=== PATIENT | female | born 1940 | race Caucasian/White ===

== ENCOUNTER 2016-07-23 06:05 | Inpatient (IN) | payer OTHER ==
[~2016-07-23] VITALS: Ht 154.9 cm; Wt 61.2 kg
[~2016-07-23 06:05] MED LIST: ALBUTEROL2.5 MG/3 M INH/SOL; ALPRAZOLAM0.25 M1 PO; ALPRAZOLAM0.5 M4 PO; ALPRAZOLAM0.5 MG PO; ASPIRIN CHILDRE81 MG PO; CHILDREN'S ASPI81 M1 PO; CHLORASEPTIC20 ML EXT; CRESTOR20 M2 PO; CRESTOR20 MG PO; CYANOCOBAL1000 MCG/2 IM; DEXAMETHASONE SO5 ML OTIC; DIOVAN 160 MG160 MG PO; DIOVAN HCT 12.51 TAB PO; DIOVAN HCT 1601 EACH PO; DUONEB 3 MG/3 ML3 ML INH/SOL; ESTRACE0.5 M1 PO; ESTRADIOL0.5 MG PO; HUMULIN R100 U/ML SC; IPRAT-ALBUT 0.5-3 ML INH; ISOSORBIDE MONO60 M1 PO; ISOSORBIDE MONO60 MG PO; METOPROLOL SUCC25 M1 PO; METOPROLOL SUCC25 MG PO; MONTELUKAST SOD10 MG PO; NICODERM C14 MG/24 H TOP; NYSTATIN100000 UNI PO; OFLOXACIN5 ML OTIC; OMEPRAZOLE20 M2 PO; PREDNISONE 20MG20 MG PO; PREDNISONE10 M2 PO; PROAIR HFA0.09 MG/Ac INH; PROAIR HFA8.5 GM INH; Robitussin AC PO; SINGULAIR10 M1 PO; SPIRIVA 18 MCG18 MCG INH; SPIRIVA18 MCG INH; SYMBICORT 160/41 PUF INH; SYMBICORT 16010.2 GM INH; VALSARTAN AND H1 TA1 PO; VALSARTAN AND H1 TA2 PO; VITAB121000 PO; VITAMIN B11000 MCG/M IM; ZITHROMAX 500M500 MG PO; ZITHROMAX500 MG PO
--- NOTE | 2016-07-23 06:11 | NUR ---
PT BIBA FROM HOME FOR DIFF BREATHING FOR 3 DAYS. HAS COUGH BUT FEELS CAN'T BRING UP ANY PHLEGM. HAS PRN NASAL CAN O2AT HOME, 2-3 L/MIN, HAS USED A FEW TIMES OVER THE LAST COUPLE OF DAYS. PMH OF ANXIETY. ON EMS ARRIVAL, PT WOULD NOT TOLERATE PULSE OX, AND WOULD NOT TOLERATE NEBULIZER TREATMENT AT FIRST. PT HAS PRE HOSP 18 G LAC. O2 SAT 99% DURING DUO NEB. PT TRI PODDING, INCREASED WOB. DR YOON IN TO EVAL PT ON PT ARRIVAL TO ROOM. SKIN WARM AND DRY. O2 SAT 90-91% ON RA. PLACED ON 2L NC, O2 SAT 93-94%. REMAINS TACYPNIC AT 28 BREATHS/MIN. PT C/O "ACHES ALL OVER". WHEEZES ON AUSCULTATION
--- NOTE | 2016-07-23 06:16 | ED DYSPNEA/ASTHMA COMPLAINT ---
History of Present Illness General Chief Complaint: Dyspnea (COPD, CHF, Other) Stated Complaint: BIBA SOB, HX COPD Source: patient, family, old records, EMS Exam Limitations: no limitations Vital Signs & Intake/Output Vital Signs & Intake/Output Vital Signs Date Time Temp Pulse Resp B/P Pulse O2 O2 Flow FiO2 Ox Delivery Rate 07/23 0537 95 Nasal 3.0L Cannula 07/23 0632 94 Nasal 3.0L Cannula 07/23 606 99.3 98 26 195/88 95 Aerosol Mask Allergies Coded Allergies: Penicillins (Severe, DIFF BREATHING, SWELLING 07/23/16) bupropion (From WELLBUTRIN) (Intermediate, WELTS 09/16/15) morphine (Intermediate, ANXIOUS AND SOB 09/16/15) Reconcile Medications Albuterol Sulfate (Proair Hfa) 8.5 GM HFA.AER.AD 2 PUF INH PRN COPD (Reported ) Albuterol Sulfate 2.5 MG/3 ML VIAL.NEB 1 Vial INH/MARAL PRN COPD (Reported) Alprazolam 0.5 MG TABLET 1 TAB PO DAILY NEEDED PRN ANXIETY (Reported) Aspirin (Children's Aspirin) 81 MG TAB.CHEW 1 TAB PO DAILY HEART/BLOOD ( Reported) Budesonide/Formoterol Fumarate (Symbicort 160-4.5 Mcg Inhaler) 10.2 GM HFA.AER.AD 2 PUF INH BID COPD (Reported) Cyanocobalamin (Vitamin B-12) (Cyanocobalamin Injection) 1,000 MCG/1 ML VIAL 1 ML IM Q30D SUPPLEMENT (Reported) Estradiol (Estrace) 0.5 MG TABLET 1 TAB PO DAILY HRT (Reported) Ipratropium/Albuterol Sulfate (Iprat-Albut 0.5-3(2.5) MG/3 Ml) 3 ML AMPUL.NEB 3 ML INH PRN COPD (Reported) Isosorbide Mononitrate (Isosorbide Mononitrate ER) 60 MG TAB.ER.24H 1 TAB PO DAILY BP (Reported) Metoprolol Succinate 25 MG TAB.ER.24H 1 TAB PO DAILY BP (Reported) Montelukast Sodium (Singulair) 10 MG TABLET 1 TAB PO DAILY COPD (Reported) Omeprazole 20 MG CAPSULE.DR 40 MG PO DAILY [employer] [facility] Rosuvastatin Calcium (Crestor) 20 MG TABLET 1 TAB PO DAILY CHOLESTEROL ( Reported) Tiotropium [place] (Spiriva) 18 MCG CAP.W.DEV 1 CAP INH DAILY COPD (Reported) Valsartan/Hydrochlorothiazide (Diovan Hct 160-12.5 MG Tab) 1 EACH TABLET 1 TAB PO DAILY BP (Reported) Triage Nurses Notes Reviewed? yes HPI: Patient presents with an increasing cough, shortness of breath, wheezing and fevers since Thursday. Similar symptoms in the past. She has COPD and has an oxygen bottle at home however she just uses as needed. Over the past 2 days she has been requiring her oxygen more. Patient denies any chest pain or chest tightness. Positive fevers and chills. Positive anorexia. No nausea or vomiting. No dysuria. (CAR JO,SUE Antonio) Past History Travel History Traveled to [place] past 21 day No Medical History Any Pertinent Medical History? 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 10 years ago she had a cardiac catheterization but no intervention as she was told she had developed collateral circulation History of MRSA: No History of VRE: No History of CDIFF: No Surgical History Surgical History: cholecystectomy, hysterectomy, back surgery, neck surgery, knee surgery . cARDIAC ANGIOPLASTY WITHOUT STENTS Psychosocial History Who do you live with Family Services at Home Oxygen What is your primary language Occitan Tobacco Use: Quit >30 days ago ETOH Use: denies use Illicit Drug Use: denies illicit drug use Family History Family History, If Any: Relation not specified for: *No pertinent family history Hx Contributory? No (CAR JO,SUE Antonio) Review of Systems Review of Systems Constitutional: Reports: see HPI, chills, fever. EENTM: Reports: no symptoms. Respiratory: Reports: see HPI, cough, short of breath, wheezing. Cardiovascular: Reports: no symptoms. GI: Reports: no symptoms. Genitourinary: Reports: no symptoms. Musculoskeletal: Reports: no symptoms. Skin: Reports: no symptoms. Neurological/Psychological: Reports: no symptoms. Hematologic/Endocrine: Reports: no symptoms. Immunologic/Allergic: Reports: no symptoms. All Other Systems: Reviewed and Negative (CAR JO,SUE Antonio) Physical Exam Physical Exam General Appearance: well developed/nourished, alert, awake, severe distress Head: atraumatic Eyes: Bilateral: PERRL, EOMI. Ears, Nose, Throat: normal pharynx, normal ENT inspection, hearing grossly normal Neck: normal inspection, supple, full range of motion, JVD (6MC) Respiratory: wheezing, respiratory distress, PROLONGED EXPIRATION Cardiovascular: regular rate/rhythm, normal peripheral pulses Gastrointestinal: normal bowel sounds, soft, non-tender, no organomegaly Extremities: normal inspection, normal capillary refill, normal range of motion, no edema Neurologic/Psych: no motor/sensory deficits, awake, alert, oriented x 3, normal mood/affect Skin: intact, normal color, warm/dry Lymphatic: no anterior cervical hope Core Measures ACS in differential dx? No Severe Sepsis Present: No Septic Shock Present: No (CAR JO,SUE Antonio) Progress Differential Diagnosis: asthma, AMI, bronchitis, COPD, pericarditis, pneumonia, pneumothorax Plan of Care: Orders Procedure Date/time Status Heart Healthy Diet 07/23 L Active Patient Data 07/23 820 Active OXYGEN SETUP (GEN) 07/23 809 Active Saline Lock 07/23 809 Active Admit to inpatient 07/23 809 Active Vital Signs 07/23 809 Active Activity/Ambulation 07/23 809 Active Code Status 07/23 809 Active ARTERIAL BLOOD GAS (GEN) 07/23 615 Complete Telemetry/Hearing Screen Coordinator 07/23 614 Active BLOOD CULTURE 07/23 614 Active TROPONIN LEVEL 07/23 614 Complete COMPREHENSIVE METABOLIC PANEL 07/23 614 Complete CBC WITHOUT DIFFERENTIAL 07/23 614 Complete EKG 07/23 614 Active Intake & Output 07/23 06 Active Laboratory Tests 07/23/16 0715: CBC w Diff NO MAN DIFF REQ, RBC 5.53 H, MCV 81.4, MCH 26.8 L, RDW 14.3, Gran % 65.9, Lymphocytes % 19.4 L, Monocytes % 14.1 H, Eosinophils % 0.3, Basophils % 0.3, Absolute Granulocytes 4.1, Absolute Lymphocytes 1.2, Absolute Monocytes 0.9 H, Absolute Eosinophils 0, Absolute Basophils 0, PUBS MCHC 32.9 L 07/23/16630: Anion Gap 11, Estimated GFR > 60, BUN/Creatinine Ratio 20.0, Glucose 105 H, Calcium 9.1, Total Bilirubin 0.7, AST 18, ALT 32, Alkaline Phosphatase 70, Troponin I < 0.01, Total Protein 6.8, Albumin 4.2, Globulin 2.6, Albumin/ Globulin Ratio 1.6 07/23/16629: pH 7.38, pCO2 46 H, pO2 84, HCO3 26, ABG O2 Sat (Measured) 93.0 L, P-50 (Temp Corrected) Y, Carboxyhemoglobin 3.0, O2 Concentration % 3 LPM, Temperature 99.3, O2 Delivery Method N/C, Phlebotomy Draw Site RIGHT RADIAL Microbiology 07/23 630 BLOOD: Blood Culture - RECD 07/23 624 BLOOD: Blood Culture - RECD Diagnostic Imaging: Viewed by Me: Radiology Read. Discussed w/RAD: Radiology Read. Initial ED EKG: NSR, nonspecific ST T wave chg Prior EKG: unchanged Rhythm Strip: normal sinus rhythm (SUE YOON MD) Comments: Improved work of breathing but still short of breath with speech feeling weak and unsteady. (CESAR HAHN MD) Departure Departure Disposition: STILL A PATIENT Condition: Guarded Referrals: MARCOS JO,VIC (PCP/Family) Departure Forms: Customer Survey General Discharge Information (SUE YOON MD) Departure Time of Disposition: 826 Clinical Impression Primary Impression: Pneumonia Qualifiers: Pneumonia type: due to unspecified organism Lung location: lower lobe of lung Secondary Impressions: COPD exacerbation Admission Note Spoke With: BRENT LOOMIS MD Documentation of Exam: Documentation of any treatments & extenuating circumstances including Concerns Regarding Discharge (functional status, medication knowledge or non-compliance, living conditions, etc.) that warrant an admission rather than observation: Supplemental oxygen serial beta agonist nebs and IV steroids IV antibiotics physical therapy medication adjustment continuing care discharge planning. (CESAR HAHN MD) Critical Care Note Critical Care Note Critical Care Time: non-applicable (SUE YOON MD) BRENT LOOMIS MD Documentation of Exam: Documentation of any treatments & extenuating circumstances including Concerns Regarding Discharge (functional status, medication knowledge or non-compliance, living conditions, etc.) that warrant an admission rather than observation: Supplemental oxygen serial beta agonist nebs and IV steroids IV antibiotics physical therapy medication adjustment continuing care discharge planning. (SELMA JO,CESAR) Critical Care Note Critical Care Note Critical Care Time: non-applicable (CAR JO,SUE Antonio)
--- NOTE | 2016-07-23 06:25 | NUR ---
RT AT BEDSIDE FOR ABG. BLOOD CULTURES X2 DRAWN. BLOODS DRAWN.
--- NOTE | 2016-07-23 06:30 | NUR ---
HOSP IV EST #20 RIGHT AC. FIRST SET OF BLOOD CULTURES OBTAINED AND SENT TO LAB ([id number]).
--- NOTE | 2016-07-23 06:36 | NUR ---
RESPIRATORY AT BEDSIDE FOR TREATMENT
--- NOTE | 2016-07-23 06:37 | NUR ---
PT GIVEN 125MG SOLUMEDROL BY GISSELLE KANIKA
--- NOTE | 2016-07-23 06:38 | NUR ---
BLOODWORK AND 2ND SET OF BLOOD CULTURES DRAWN AND SENT OFF TO THE LAB.
--- NOTE | 2016-07-23 06:48 | NUR ---
XRAY AT BEDSIDE FOR IMAGING
--- NOTE | 2016-07-23 06:50 | NUR ---
EKG DONE AND SHOWN TO DR. YOON.
--- NOTE | 2016-07-23 07:01 | NUR ---
ASSUMED CARE OF PT WHO IS A&OX3. PT CHANGED INTO HOSPITAL GOWN AND MODERATE RESPIRATORY DISTRESS NOTED WHILE ASSISTING PT. O2 SATS DOWN TO 88% DURING MINIMAL EXERTION. DAUGHTER OF PT AT BEDSIDE. WILL CTM
--- NOTE | 2016-07-23 07:05 | NUR ---
LAB CALLED TO REDRAW CBC
--- NOTE | 2016-07-23 07:07 | RADIOLOGY REPORT ---
EXAMINATION: XR PORTABLE CHEST CLINICAL INFORMATION: Pneumonia. Shortness of breath and cough. COMPARISON: 10/03/2015 TECHNIQUE: Portable AP view of the chest was obtained. FINDINGS: Cardiac leads overlie the chest. The lungs are well expanded. Patchy retrocardiac opacity noted. There is no edema or effusion. No pneumothorax. The cardiomediastinal silhouette is within normal limits. No acute osseous abnormality. IMPRESSION: Patchy retrocardiac opacity could represent atelectasis or pneumonia.
--- NOTE | 2016-07-23 07:15 | NUR ---
CBC REDRAWN AND SENT OFF TO THE LAB.
[2016-07-23 07:22] LABS: ABSOLUTE BASOPHIL COUNT 0 /CUMM (0.0-0.2); ABSOLUTE EOSINOPHIL COUNT 0 /CUMM (0.0-0.7); ABSOLUTE GRANULOCYTE CT 4.1 /CUMM (1.4-6.5); ABSOLUTE LYMPH COUNT 1.2 /CUMM (1.2-3.4); ABSOLUTE MONOCYTE COUNT 0.9 /CUMM (0.10-0.60); BASOPHIL % 0.3 % (0.0-2.0); EOSINOPHIL % 0.3 % (0-5); MEAN CORPUSCULAR HGB 26.8 PG (27.0-31.0); MEAN CORPUSCULAR HGB CONC 32.9 G/DL (33.0-37.0); MEAN CORPUSCULAR VOLUME 81.4 FL (81.0-99.0); RBC DISTRIBUTION WIDTH 14.3 % (11.5-14.5); RED BLOOD CELL CT 5.53 /CUMM (4.20-5.40); WHITE BLOOD CELL COUNT 6.2 /CUMM (4.8-10.8)
[2016-07-23 07:43] LABS: GRANULOCYTE % 65.9 % (42.2-75.2)
--- NOTE | 2016-07-23 08:33 | NUR ---
PT MEDICATED DOCUMENTED IN EMAR. BREAKFAST TRAY ORDERED, WAITING FOR ARRIVAL
--- NOTE | 2016-07-23 08:51 | History & Physical ---
GILL ROMERO 07/23/16 0851: General Information and HPI Source of Information: patient, family, old records Exam Limitations: no limitations History of Present Illness: She 76-year-old woman with past medical history of COPD on 2-3 L of home oxygen as needed, hypertension, hyperlipidemia, coronary artery disease with history of [place] and angioplasty without stents, anxiety, vitamin B12 deficiency, spinal stenosis and varicose veins BIBA from home for worsening shortness of breath, chills, dry cough and chest congestion for last 3 days. This morning patient woke up and could not breathe. She lives with her daughter. She used oxygen all day and had nebulization treatments 3 times yesterday but could not help. She reports feeling dizzy but denies any chest pain or discomfort, palpitations, nausea, vomiting, abdominal pain, any change in urinary or bowel habits, leg swelling. He reports sick contacts at home. She is a former smoker. Used to smoke 1 pack per day. Quit one year ago. She is independent for her daily activities. Allergies/Medications Allergies: Coded Allergies: Penicillins (Severe, DIFF BREATHING, SWELLING 07/23/16) bupropion (From WELLBUTRIN) (Intermediate, WELTS 09/16/15) morphine (Intermediate, ANXIOUS AND SOB 09/16/15) Home Med list Albuterol Sulfate (Proair Hfa) 8.5 GM HFA.AER.AD 2 PUF INH PRN COPD (Reported ) Albuterol Sulfate 2.5 MG/3 ML VIAL.NEB 1 Vial INH/MARAL PRN COPD (Reported) Alprazolam 0.5 MG TABLET 1 TAB PO DAILY NEEDED PRN ANXIETY (Reported) Aspirin (Children's Aspirin) 81 MG TAB.CHEW 1 TAB PO DAILY HEART/BLOOD ( Reported) Budesonide/Formoterol Fumarate (Symbicort 160-4.5 Mcg Inhaler) 10.2 GM HFA.AER.AD 2 PUF INH BID COPD (Reported) Cyanocobalamin (Vitamin B-12) (Cyanocobalamin Injection) 1,000 MCG/1 ML VIAL 1 ML IM Q30D SUPPLEMENT (Reported) Estradiol (Estrace) 0.5 MG TABLET 1 TAB PO DAILY HRT (Reported) Ipratropium/Albuterol Sulfate (Iprat-Albut 0.5-3(2.5) MG/3 Ml) 3 ML AMPUL.NEB 3 ML INH PRN COPD (Reported) Isosorbide Mononitrate (Isosorbide Mononitrate ER) 60 MG TAB.ER.24H 1 TAB PO DAILY BP (Reported) Metoprolol Succinate 25 MG TAB.ER.24H 1 TAB PO DAILY BP (Reported) Montelukast Sodium (Singulair) 10 MG TABLET 1 TAB PO DAILY COPD (Reported) Rosuvastatin Calcium (Crestor) 20 MG TABLET 1 TAB PO DAILY CHOLESTEROL ( Reported) Tiotropium [place] (Spiriva) 18 MCG CAP.W.DEV 1 CAP INH DAILY COPD (Reported) Valsartan/Hydrochlorothiazide (Diovan Hct 160-12.5 MG Tab) 1 EACH TABLET 1 TAB PO DAILY BP (Reported) Compliance With Home Meds: GOOD Past History Travel History Traveled to [place] past 21 day No Medical History Neurological: NONE EENT: cataracts Cardiovascular: CAD, hypertension, hyperlipidemia, myocardial infarction ( 25 YRS AGO AND 10 YRS AGO) Respiratory: COPD Gastrointestinal: GERD Hepatic: cholelithiasis Renal: NONE Musculoskeletal: spinal stenosis Psychiatric: anxiety Endocrine: NONE Blood Disorders: VITAMIN B12 DEFICIENCY Cancer(s): NONE 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 10 years ago she had a cardiac catheterization but no intervention as she was told she had developed collateral circulation History of MRSA: No History of VRE: No History of CDIFF: No Surgical History Surgical History: cholecystectomy, hysterectomy, back surgery, neck surgery, knee surgery . cARDIAC ANGIOPLASTY WITHOUT STENTS Past Family/Social History Family History Relations & Conditions if any Relation not specified for: *No pertinent family history Psychosocial History Who Do You Live With? child Services at Home: Oxygen Primary Language: Tajik ETOH Use: denies use Illicit Drug Use: denies illicit drug use Functional Ability ADLs Independent: dressing, eating, toileting, bathing. Ambulation: independent IADLs Independent: shopping, housework, finances, food prep, telephone, transportation , medication admin. Review of Systems Review of Systems Constitutional: Reports: see HPI. Exam & Diagnostic Data Last 24 Hrs of Vital Signs/I&O Vital Signs Date Time Temp Pulse Resp B/P Pulse O2 O2 Flow FiO2 Ox Delivery Rate 07/23 928 98.4 82 20 115/55 95 Nasal 2.0L Cannula 07/23 636 95 Nasal 3.0L Cannula 02/08 0632 94 Nasal 3.0L Cannula 07/23 606 99.3 98 26 195/88 95 Aerosol Mask Intake & Output 07/23 1600 07/23 0800 07/23 0000 Intake Total Output Total Balance Patient 137 lb Weight Physical Exam General Appearance Alert, Oriented X3, Cooperative, Mild Distress Skin No Rashes HEENT DRY MUCOUS MEMBRANES Neck Supple Cardiovascular Regular Rate Lungs DECREASED AIR ENTRY B/L Abdomen Normal Bowel Sounds, Soft, No Tenderness Neurological Normal Speech, Strength at 5/5 X4 Ext, Sensation Intact, Cranial Nerves 3-12 NL Extremities No Edema, VENOUS STASIS CHANGES Last 24 Hrs of Labs/Tano: Laboratory Tests 07/23/16714: CBC w Diff NO MAN DIFF REQ, RBC 5.53 H, MCV 81.4, MCH 26.8 L, RDW 14.3, Gran % 65.9, Lymphocytes % 19.4 L, Monocytes % 14.1 H, Eosinophils % 0.3, Basophils % 0.3, Absolute Granulocytes 4.1, Absolute Lymphocytes 1.2, Absolute Monocytes 0.9 H, Absolute Eosinophils 0, Absolute Basophils 0, PUBS MCHC 32.9 L 07/23/16630: Anion Gap 11, Estimated GFR > 60, BUN/Creatinine Ratio 20.0, Glucose 105 H, Calcium 9.1, Total Bilirubin 0.7, AST 18, ALT 32, Alkaline Phosphatase 70, Troponin I < 0.01, Total Protein 6.8, Albumin 4.2, Globulin 2.6, Albumin/ Globulin Ratio 1.6 07/23/16 0630: pH 7.38, pCO2 46 H, pO2 84, HCO3 26, ABG O2 Sat (Measured) 93.0 L, P-50 (Temp Corrected) Y, Carboxyhemoglobin 3.0, O2 Concentration % 3 LPM, Temperature 99.3, O2 Delivery Method N/C, Phlebotomy Draw Site RIGHT RADIAL Microbiology 07/23 930 URINE ROUT: Legionella Antigen - ORD 07/23 930 URINE ROUT: Streptococcus pneumoniae Antigen (M - ORD 07/23 930 LOWER RESP: Respiratory Culture - ORD 07/23 930 LOWER RESP: Gram Stain - ORD 07/23 630 BLOOD: Blood Culture - RECD 07/23 624 BLOOD: Blood Culture - RECD Diagnostic Data EKG Results Normal sinus rhythm with heart rate 92, no acute ST-T wave changes, QTc 451 CXR Results Patchy retrocardiac opacity could represent atelectasis or pneumonia Assessment/Plan Assessment: She 76-year-old woman with past medical history of COPD on 2-3 L of home oxygen as needed, hypertension, hyperlipidemia, coronary artery disease with history of [place] and angioplasty without stents, anxiety, vitamin B12 deficiency, spinal stenosis and varicose veins BIBA from home for worsening shortness of breath, chills, dry cough and chest congestion for last 3 days. Patient was very short of breath, on aerosol mask when she was brought into ER by EMS. She was also tachypneic with respiratory rate 28 breaths per minute. Oxygen saturation was 90-91% on room air. She was put on 2 L of oxygen by nasal cannula and oxygen saturation went up to 93-94%. Oxygen saturation went down to 88% during minimal exertion. She was given nebz treatment in ER. She was wheezing on admission. Air entry is decreased bilaterally. She is afebrile. MAXIMUM TEMPERATURE 99. WBC count is normal. In ER she was given Solu-Medrol 125 mg IV 1, ceftriaxone 1 g 1 and doxycycline 100 mg 1. Problem list 1. Acute hypoxic respiratory failure secondary to COPD and pneumonia 2. History of hypertension 3. History of hyperlipidemia 4. History of anxiety 5. History of coronary artery disease Plan * Admitted on general medicine floor * Monitor vitals closely. We will continue supplemental oxygen. We will try to keep oxygen saturation more than 92% * Continue TRC nebs * Start patient on ceftriaxone and azithromycin. We will also start her on Solu -Medrol 40 mg every 8 hours. Mucinex * Follow blood cultures and sputum cultures, urinary antigen for Legionella and strep he will, rapid flu * We will continue all her home medications * Heart healthy diet * Subcutaneous Lovenox for DVT prophylaxis * Full code As Ranked By This Provider Problem List: 1. Pneumonia Qualifiers Pneumonia type: due to unspecified organism Lung location: lower lobe of lung 2. COPD (chronic obstructive pulmonary disease) Core Measures/Miscellaneous Acute Coronary Syndrome ACS Diagnosis: No Cerebrovascular Accident CVA/TIA Diagnosis: No Congestive Heart Failure CHF Diagnosis: No Venous Thromboembolism VTE Risk Factors: Acute medical illness, Age > 40 VTE Prophylaxis Ordered Inpt: Pharm- Lovenox No Mech VTE prophylaxis d/t: No contraindications No VTE Pharm Prophylaxis d/t: No contraindications VTE Diagnosis: No VTE Type: NONE VTE Confirmed by (Test): NONE Severe Sepsis Severe Sepsis Present: No Septic Shock Septic Shock Present: No Miscellaneous Documentation Attending Case Discussed With: RUDDY BOWERS MD Primary Care Physician: MARCOS JO,VIC Patient sees these Specialists Teja Bales MD Level of Patient Care: General Medicine RUDDY BOWERS MD 07/23/16 2110: Attending Review Statement Attending Statement Attending Statement: examined this patient, discuss w/resident/PA/BOAT BUFFER PLASTIC, agreed w/resident/PA/BOAT BUFFER PLASTIC, reviewed EMR data (avail), discussed with nursing, discussed with case mgmt, reviewed images, amended to note Attending Assessment/Plan: The patient is a 76 yo female with/o COPD, HTN, HL, CAD (S/P [place]/angioplasty- w/o stent), and anxiety who presented in the emergency room with 3 day h/o increased dyspnea, chills, non-productive cough. She used a nebulizer and oxygen at home without relief. In the ED was found to desaturate to 88% on RA with ambulation- acute hypoxic respiratory failure and CXR suggested LLL pneumonia. Physical Exam: VS: 99.3, P 98. R 20 BP 115/55, PO 95% 3L HEENT: eyes- PERRLA, EOMI oscar- no lesions Neck: no JVD or adenopathy, no bruits Chest: severely diminished breath sounds diffusely with mild expiratory wheeze Cor: RRR, nl S1, S2 w/o murm Abd: BS+, soft, NT Ext: no edema, + stasis changes, pulses 1+ Neuro: alert & oriented x 3, non-focal Labs/Tests- as above Impression/Plan: #Community Acquired Pneumonia- LLL infiltrate on CXR. Plan: Admit to medical floor. Panculture IV antibiotics- Ceftriaxone/Zithromax Mucinex #Acute COPD Exacerbation- with significantly diminished breath sounds. Plan: IV Solumedrol, albuterol nebs, etc. #Acute Hypoxic Respiratory Failure- secondary to COPD exacerbation/pneumonia. Plan: Oxygen support- nasal with close pulse oximetry monitoring. #Essential HTN- BP good. Plan: Continue Metoprolol, Valsartan, HCTZ #CAD- no chest pain or ischemic changes. Plan: Continue Isosorbide/Metoprolol/ASA. #Hyperlipidemia- on Rosuvastatin as OP. Plan: Substitute Atorvastatin while in hospital.
--- NOTE | 2016-07-23 09:15 | NUR ---
PT GIVEN BREAKFAST TRAY
--- NOTE | 2016-07-23 10:48 | NUR ---
PT MEDICATED WITH MORNING MEDS DOCUMENTED. PT PREVIOUSLY TAKEN MOST OF HER HOME MEDS BEFORE COMING TO ED TODAY
--- NOTE | 2016-07-23 12:35 | NUR ---
REPORT RECEIVED FROM DUNIA RN, PT CARE ASSUMED. PT RESTING COMFORTABLY ON STRETCHER AWAITING BED ASSIGNMENT. FAMILY AT BEDSIDE
--- NOTE | 2016-07-23 13:16 | NUR ---
BED ASSIGNMENT [id number]
--- NOTE | 2016-07-23 14:24 | NUR ---
AWAITING FLOOR RN TO CALL BACK.
--- NOTE | 2016-07-23 14:47 | NUR ---
REPORT CALLED. TRANSPORT CALLED.
--- NOTE | 2016-07-23 14:54 | NUR ---
DANNA HAMMER Nurse Note by: BIJAL COLLAZO I agree with the LABORER PIPELINES findings/evaluation of this patient's condition. Entered by: BIJAL COLLAZO Date: 07/23/16 Time: 0683
[2016-07-23 15:50] VITALS: BP 102/60
--- NOTE | 2016-07-23 16:00 | NUR ---
ARRIVED TO FLOOR FROM ED. A & O X 3. AMBULATORY. O2 2L IN PLACE, BASELINE AT HOME. VSS. DENIES PAIN. LUNGS DIMINISHED, PT REQUESTING TREATMENT, RESPIRATORY CALLED. ORIENTED TO CALL SYSTEM. WILL MONITOR.
--- NOTE | 2016-07-23 16:18 | Admission Certification ---
Admission Certification Certification Statement - As attending physician, I certify that at the time of - admission, based on clinical presentation, severity of - symptoms, need for further diagnostic testing and - therapeutic interventions, and risk of adverse outcomes - without in-hospital treatment, in my clinical assessment, - this patient requires an acute hospital stay for a minimum - of two nights or longer. I have also considered psychsocial - factors such as support system, advanced age, financial - issues, cognitive issues, and failed out-patient treatments, - past re-admission history, safety of patient, and lack of - compliance as applicable. Specific rationale supporting this admission is: Patient presents with acute hypoxic respiratory failure requiring oxygen, LLL community acquired pneumonia and COPD exacerbation. Needs close monitor of oxygen and nasal oxygen. IV antibiotics (Ceftriaxone/Zitrhomax) and IV medrol, nebulizer treatments.
[2016-07-23 22:13] VITALS: BP 120/60
[2016-07-24 05:54] VITALS: BP 90/54
--- NOTE | 2016-07-24 07:40 | PN- Housestaff ---
RACHEAL BEE 07/24/16 0739: Subjective Follow-up For: COPD exacerbation Pneumonia/atelectasis Subjective: Patient seen and examined. Was short of breath in the morning even after neb treatment. She was saturating 87% on 3.5 L oxygen so her oxygen was increased to 4 L. Lungs showed diminshed breath sounds. No leukocytosis appreciated on labs. Review of Systems Constitutional: Reports: see HPI. Objective Last 24 Hrs of Vital Signs/I&O Vital Signs Date Time Temp Pulse Resp B/P Pulse O2 O2 Flow FiO2 Ox Delivery Rate 07/24 924 80 110/80 07/24 924 80 110/80 07/24 924 80 110/80 07/24 807 92 Nasal 3.5L Cannula 07/24 0554 97.8 70 20 90/54 95 Nasal 3.0L Cannula 07/24 0000 92 Nasal 3.0L Cannula 07/23 2213 97.1 83 22 120/60 93 Nasal Cannula 07/23 1647 Nasal 3.0L Cannula 07/23 1600 92 Nasal 2.0L Cannula 07/23 1550 98.1 71 22 102/60 92 Nasal 3.0L Cannula 07/23 1514 97.9 72 20 115/56 94 Nasal 2.0L Cannula 07/23 1424 20 07/23 1339 97.9 74 2 125/58 95 Nasal 2.0L Cannula 07/23 1054 Nasal 3.0L Cannula 07/23 1047 98.0 88 20 138/88 07/23 1047 98.0 88 20 138/88 07/23 1046 98.0 88 20 138/88 Intake & Output 07/24 1600 07/24 0800 07/24 0000 Intake Total 200 120 Output Total Balance 200 120 Intake, Oral 200 120 Patient 61.235 kg Weight Physical Exam General Appearance: Alert, Oriented X3, Cooperative, Mild Distress Skin: No Rashes, No Breakdown HEENT: Atraumatic Lymphatic: Cervical nl Cardiovascular: Normal S1, Normal S2 Lungs: dec breath sounds b/l Abdomen: Soft, No Tenderness Current Medications: Current Medications Sig/Jennifer Start time Last Medication Dose Route Stop Time Status Admin Albuterol Sulfate 3 ML EVERY 4 HRS/AWAKE 07/23 1999 AC 07/24 INH 0803 Albuterol Sulfate 3 ML Q4 HRS NEEDED PRN 07/23 929 AC INH Alprazolam 0.5 MG DAILY PRN 07/23 0930 AC 07/23 PO 07/30 0929 2052 Aspirin 81 MG DAILY 07/23 1000 AC 07/24 PO 0925 Atorvastatin Calcium 20 MG 1700 07/23 1700 AC 07/23 PO 1708 Azithromycin 500 MG DAILY 07/23 1000 AC 07/24 Dextrose/Water 250 ML IV 0926 Budesonide/ 2 PUF BID 07/23 1000 AC 07/24 Formoterol Fumarate INH 0933 Ceftriaxone Sodium 1,000 MG DAILY 07/24 1000 AC 07/24 IV 0924 Enoxaparin Sodium 40 MG DAILY 07/23 1000 AC 07/24 SC 0925 Estradiol 0.5 MG DAILY 07/23 1000 AC 07/24 PO 0925 Guaifenesin 600 MG Q12 07/23 1000 AC 07/24 PO 0925 Hydrochlorothiazide 12.5 MG DAILY 07/23 1000 AC 07/24 PO 0924 Ipratropium [place] 2.5 ML EVERY 4 HRS/AWAKE 07/23 2000 AC 07/24 INH 0803 Isosorbide 60 MG DAILY 07/23 1000 AC 07/24 Mononitrate PO 0925 Losartan Potassium 50 MG DAILY 07/23 1000 AC 07/24 PO 0925 Methylprednisolone 40 MG Q8 07/23 1400 AC 07/24 IV 0523 Metoprolol Succinate 25 MG DAILY 07/23 1000 AC 07/24 PO 0925 Montelukast Sodium 10 MG QPM 07/23 2200 AC 07/23 PO 1709 Tiotropium [place] 1 PUF DAILY 07/23 1000 AC 07/24 INH 0959 Last 24 Hrs of Lab/Tano Results Last 24 Hrs of Labs/Mics: Laboratory Tests 07/24/16 0802: Anion Gap 9, Estimated GFR > 60, BUN/Creatinine Ratio 27.1 H, Glucose 151 H, Calcium 9.4, Total Bilirubin 0.5, AST 21, ALT 27, Alkaline Phosphatase 60, Total Protein 6.7, Albumin 4.1, Globulin 2.6, Albumin/Globulin Ratio 1.6, CBC w Diff NO MAN DIFF REQ, RBC 5.37, MCV 81.5, MCH 27.0, RDW 14.1, Gran % 82.3 H, Lymphocytes % 10.4 L, Monocytes % 7.0, Eosinophils % 0.1, Basophils % 0.2, Absolute Granulocytes 3.4, Absolute Lymphocytes 0.4 L, Absolute Monocytes 0.3, Absolute Eosinophils 0, Absolute Basophils 0, PUBS MCHC 33.2 Microbiology 07/23 1134 URINE ROUT: Legionella Antigen - COMP 07/23 1133 URINE ROUT: Streptococcus pneumoniae Antigen (M - COMP Assessment/Plan Assessment: Patient is a 76-year-old female with PMH of COPD on 2-3 L of home oxygen as needed, hypertension, hyperlipidemia, coronary artery disease with history of [place] and angioplasty without stents, anxiety, vitamin B12 deficiency, spinal stenosis and varicose veins BIBA from home for worsening shortness of breath, chills, dry cough and chest congestion for last 3 days. Patient was very short of breath, on aerosol mask when she was brought into ER by EMS. She was also tachypneic with respiratory rate 28 breaths per minute. Oxygen saturation was 90-91% on room air. She was put on 2 L of oxygen by nasal cannula and oxygen saturation went up to 93-94%. Oxygen saturation went down to 88% during minimal exertion. She was given nebz treatment in ER. TMAX on admission 99. WBC count is normal. In ER she was given Solu-Medrol 125 mg IV 1, ceftriaxone 1 g 1 and doxycycline 100 mg 1. Problem list Acute hypoxic respiratory failure secondary to COPD and pneumonia Patient was admitted to telemetry floor, satrted on 40 mg solumedrol after a stress does. She was started on ceftriaxone/azithro for possible pneumina CXR on admission showed patchy retrocardiac opacities Will keep oxygen saturations > 92% TRC nebs as needed. Respiratory therapist on board Will continue on mucine, and follow up BC and Lower resp culture History of hypertension She is continued on Metoprolol, HCTZ and losartan Patient was hypotensiove this morning Will hold her BP meds for pressures < 100 systolic Hyperlipidemia and anxiety Will continue her on home meds. Heart healthy diet Subcutaneous Lovenox for DVT prophylaxis Full code Problem List: 1. PNEUMONIA Pain Ratin Pain Location: none Pain Goal: Pain 4 or less Pain Plan: tylenol prn for pain Tomorrow's Labs & Rationales: none RUDDY BOWERS MD 07/24/16 1151: Attending Review Statement Attending Statement Attending MD Statement: examined this patient, discuss w/resident/PA/GRINDER SET UP OPERATOR [employer], agreed w/resident/PA/GRINDER SET UP OPERATOR [employer], discussed with family, reviewed EMR data (avail), discussed with nursing, amended to note Attending Assessment/Plan: The patient was seen and discussed with house staff. Agree with the plan of care as outlined. Still with significantly diminished breath sounds. Continue current treatment.
[2016-07-24 08:29] LABS: ABSOLUTE BASOPHIL COUNT 0 /CUMM (0.0-0.2); ABSOLUTE EOSINOPHIL COUNT 0 /CUMM (0.0-0.7); ABSOLUTE GRANULOCYTE CT 3.4 /CUMM (1.4-6.5); ABSOLUTE LYMPH COUNT 0.4 /CUMM (1.2-3.4); ABSOLUTE MONOCYTE COUNT 0.3 /CUMM (0.10-0.60); BASOPHIL % 0.2 % (0.0-2.0); EOSINOPHIL % 0.1 % (0-5); HEMATOCRIT 43.7 % (37-47); MEAN CORPUSCULAR HGB CONC 33.2 G/DL (33.0-37.0); MEAN CORPUSCULAR VOLUME 81.5 FL (81.0-99.0); RBC DISTRIBUTION WIDTH 14.1 % (11.5-14.5); RED BLOOD CELL CT 5.37 /CUMM (4.20-5.40); WHITE BLOOD CELL COUNT 4.2 /CUMM (4.8-10.8)
[2016-07-24 09:01] LABS: GRANULOCYTE % 82.3 % (42.2-75.2)
[2016-07-24 14:32] VITALS: BP 110/56
[2016-07-24 21:44] VITALS: BP 94/60
[2016-07-25 06:26] VITALS: BP 118/64
--- NOTE | 2016-07-25 07:41 | PN- Housestaff ---
Subjective Follow-up For: COPD exacerbation Subjective: Patient seen and examined. Feels the same. Patient continues to feel SOB, worsen upon exertion. Evaluated by meteorological technician in AM. CXR PA/lateral not significant for pneumonia. Antibiotics narrowed to azithromycin. Patient continues to be afebrile, and no leukocytosis. Review of Systems Constitutional: Reports: see HPI. Objective Last 24 Hrs of Vital Signs/I&O Vital Signs Date Time Temp Pulse Resp B/P Pulse O2 O2 Flow FiO2 Ox Delivery Rate 07/25 1004 98 Nasal 4.0L Cannula 07/25 0942 70 118/70 07/25 0942 70 118/70 07/25 0942 70 118/70 07/25 0800 95 Nasal 3.5L Cannula 07/25 0626 97.8 64 20 118/64 94 Nasal 3.5L Cannula 07/25 0000 Nasal 3.5L Cannula 07/24 2144 97.7 66 18 94/60 94 Nasal 3.5L Cannula 07/24 1905 91 Nasal 3.0L Cannula 07/24 1853 93 Nasal 3.0L Cannula 07/24 1600 98 Nasal 4.0L Cannula 07/24 1432 98.8 70 22 110/56 98 Intake & Output 07/25 1600 07/25 0800 07/25 0000 Intake Total 340 240 Output Total Balance 340 240 Intake, Oral 340 240 Physical Exam General Appearance: Alert, Oriented X3, Cooperative Skin: No Rashes, No Breakdown HEENT: Atraumatic Neck: Supple Cardiovascular: Normal S1, Normal S2 Lungs: dec breath sounds b/l Abdomen: Normal Bowel Sounds, Soft, No Tenderness Neurological: Normal Speech, Normal Tone Extremities: Normal Pulses Current Medications: Current Medications Sig/Jennifer Start time Last Medication Dose Route Stop Time Status Admin Albuterol Sulfate 3 ML Q4 HRS NEEDED PRN 07/23 929 AC 07/25 INH 1002 Alprazolam 0.25 MG ONCE ONE 07/24 2144 DC 07/24 PO 07/24 2145 220 Alprazolam 0.5 MG DAILY PRN 07/23 929 AC 07/25 PO 07/30 09 1111 Aspirin 81 MG DAILY 07/23 1000 AC 07/25 PO 0941 Atorvastatin Calcium 20 MG 1700 07/23 1700 AC 07/24 PO 1812 Azithromycin 500 MG DAILY 07/23 1000 AC 07/25 Dextrose/Water 250 ML IV 0939 Budesonide/ 2 PUF BID 07/23 1000 AC 07/25 Formoterol Fumarate INH 0700 Ceftriaxone Sodium 1,000 MG DAILY 07/24 1000 DC 07/25 IV 0939 Enoxaparin Sodium 40 MG DAILY 07/23 1000 AC 07/25 SC 0942 Estradiol 0.5 MG DAILY 07/23 1000 AC 07/25 PO 0941 Guaifenesin 600 MG Q12 07/23 1000 AC 07/25 PO 0942 Isosorbide 60 MG DAILY 07/23 1000 AC 07/25 Mononitrate PO 0942 Losartan Potassium 50 MG DAILY 07/23 1000 AC 07/25 PO 0942 Methylprednisolone 40 MG Q6 07/25 1200 AC 07/25 IV 1237 Methylprednisolone 40 MG Q8 07/23 1400 DC 07/25 IV 0508 Metoprolol Succinate 12.5 MG DAILY 07/25 1000 AC 07/25 PO 0942 Metoprolol Succinate 25 MG DAILY 07/23 1000 DC 07/24 PO 0925 Montelukast Sodium 10 MG QPM 07/23 2200 AC 07/24 PO 1812 Patient Medication 1 ED .ST-MED ONE 07/25 1331 SC Teaching ED 07/25 1332 Tiotropium [place] 1 PUF DAILY 07/23 1000 AC 07/25 INH 0659 Last 24 Hrs of Lab/Tano Results Last 24 Hrs of Labs/Mics: Laboratory Tests 07/25/16 1050: pH 7.39, pCO2 53 H, pO2 65 L, HCO3 31 H, ABG O2 Sat (Measured) 93.0 L, P-50 (Temp Corrected) YES, Carboxyhemoglobin 1.4 L, O2 Concentration % 4L, Temperature 97.8, O2 Delivery Method NC, Phlebotomy Draw Site RIGHT RADIAL Assessment/Plan Assessment: Patient is a 76-year-old female with PMH of COPD on 2-3 L of home oxygen as needed, hypertension, hyperlipidemia, coronary artery disease with history of [place] and angioplasty without stents, anxiety, vitamin B12 deficiency, spinal stenosis and varicose veins BIBA from home for worsening shortness of breath, chills, dry cough and chest congestion for last 3 days. Patient was very short of breath, on aerosol mask when she was brought into ER by EMS. She was also tachypneic with respiratory rate 28 breaths per minute. Oxygen saturation was 90-91% on room air. She was put on 2 L of oxygen by nasal cannula and oxygen saturation went up to 93-94%. Oxygen saturation went down to 88% during minimal exertion. She was given nebz treatment in ER. TMAX on admission 99. WBC count is normal. In ER she was given Solu-Medrol 125 mg IV 1, ceftriaxone 1 g 1 and doxycycline 100 mg 1. Problem list Acute hypoxic respiratory failure secondary to COPD and pneumonia Patient had repeat CXR in am, WHICH IS NOT SIGNIFICANT FOR PNEUMONIA antibiotics narrowed to azithromycin. Solumedrol increased to 40 mg q6 as patient continued to feel winded on exertion and at rest Will keep oxygen saturations > 92% TRC nebs as needed. Respiratory therapist on board Will continue on mucine, and follow up BC and Lower resp culture History of hypertension Patient however continues to be hypotensive during her hospital stay. Had a systolic BP of 90 last night. She takes 25 mg XL metoprolol at home, which is decreased to 12.5 daily. Her HCTZ is held Patient is continued on 50 mg of losartan. will continue to monitor her closely. 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 Rincon today, who arrgres with medication adjustment. Will hold her BP meds for pressures < 100 systolic Hyperlipidemia and anxiety Will continue her on home meds. Heart healthy diet Subcutaneous Lovenox for DVT prophylaxis Full code Problem List: 1. COPD (chronic obstructive pulmonary disease) Pain Ratin Pain Location: none Pain Goal: Pain 4 or less Pain Plan: tylenol prn for pain Tomorrow's Labs & Rationales: cbc bep
--- NOTE | 2016-07-25 08:05 | Cons- Pulmonary ---
General Information and HPI Consulting Request Date of Consult: 07/25/16 Requested By: philly Reason for Consult: Shortness of breath hypoxic history failure History of Present Illness: Patient is 76-year-old with long history of smoking severe COPD on Symbicort and Spiriva with when necessary supplemental oxygen admitted with acute increasing shortness breath found to be hypoxic requiring continuous oxygen. Chest x-ray suggest a left lower lobe density. Concern is raised over feeling poorly after albuterol nebulization treatments Allergies/Medications Allergies: Coded Allergies: Penicillins (Severe, DIFF BREATHING, SWELLING 07/23/16) bupropion (From WELLBUTRIN) (Intermediate, WELTS 09/16/15) morphine (Intermediate, ANXIOUS AND SOB 09/16/15) Home Med List: Albuterol Sulfate (Proair Hfa) 8.5 GM HFA.AER.AD 2 PUF INH PRN COPD (Reported ) Albuterol Sulfate 2.5 MG/3 ML VIAL.NEB 1 Vial INH/MARAL PRN COPD (Reported) Alprazolam 0.5 MG TABLET 1 TAB PO DAILY NEEDED PRN ANXIETY (Reported) Aspirin (Children's Aspirin) 81 MG TAB.CHEW 1 TAB PO DAILY HEART/BLOOD ( Reported) Budesonide/Formoterol Fumarate (Symbicort 160-4.5 Mcg Inhaler) 10.2 GM HFA.AER.AD 2 PUF INH BID COPD (Reported) Cyanocobalamin (Vitamin B-12) (Cyanocobalamin Injection) 1,000 MCG/1 ML VIAL 1 ML IM Q30D SUPPLEMENT (Reported) Estradiol (Estrace) 0.5 MG TABLET 1 TAB PO DAILY HRT (Reported) Ipratropium/Albuterol Sulfate (Iprat-Albut 0.5-3(2.5) MG/3 Ml) 3 ML AMPUL.NEB 3 ML INH PRN COPD (Reported) Isosorbide Mononitrate (Isosorbide Mononitrate ER) 60 MG TAB.ER.24H 1 TAB PO DAILY BP (Reported) Metoprolol Succinate 25 MG TAB.ER.24H 1 TAB PO DAILY BP (Reported) Montelukast Sodium (Singulair) 10 MG TABLET 1 TAB PO DAILY COPD (Reported) Rosuvastatin Calcium (Crestor) 20 MG TABLET 1 TAB PO DAILY CHOLESTEROL ( Reported) Tiotropium [place] (Spiriva) 18 MCG CAP.W.DEV 1 CAP INH DAILY COPD (Reported) Valsartan/Hydrochlorothiazide (Diovan Hct 160-12.5 MG Tab) 1 EACH TABLET 1 TAB PO DAILY BP (Reported) Review of Systems Review of Systems Constitutional: Denies: chills, fever. Cardiovascular: Denies: chest pain, peripheral edema. Respiratory: Reports: cough, short of breath, wheezing. Denies: hemoptysis, sputum production. GI: Denies: abdominal pain, diarrhea, melena. Genitourinary: Denies: dysuria. 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 cARDIAC ANGIOPLASTY WITHOUT STENTS Family History Relations & Conditions If Any: Relation not specified for: *No pertinent family history Psychosocial History Where Do You Live? Home Who Do You Live With? child Services at Home: Oxygen Primary Language: Portuguese Smoking Status: Former Smoker ETOH Use: denies use Illicit Drug Use: denies illicit drug use Functional Ability ADLs Independent: dressing, eating, toileting, bathing. Ambulation: independent IADLs Independent: shopping, housework, finances, food prep, telephone, transportation , medication admin. Exam & Diagnostic Data Last 24 Hrs of Vital Signs/I&O Vital Signs Date Time Temp Pulse Resp B/P Pulse O2 O2 Flow FiO2 Ox Delivery Rate 07/25 0626 97.8 64 20 118/64 94 Nasal 3.5L Cannula 07/25 0000 Nasal 3.5L Cannula 07/24 2144 97.7 66 18 94/60 94 Nasal 3.5L Cannula 07/24 1905 91 Nasal 3.0L Cannula 07/24 1853 93 Nasal 3.0L Cannula 07/24 1600 98 Nasal 4.0L Cannula 07/24 1432 98.8 70 22 110/56 98 07/24 0925 80 110/80 07/24 924 80 110/80 07/24 0825 80 110/80 07/24 0808 92 Nasal 3.5L Cannula Intake & Output 07/25 1600 07/25 0800 07/25 0000 Intake Total 240 Output Total Balance 240 Intake, Oral 240 Oxygen saturation 2.5 L 94% HEENT exam shows no adenopathy exam for chest shows fine expiratory wheezes cardiac exam shows regular S1 and S2 without murmurs abdominal exam soft nontender extremities without edema Last 48 Hrs of Labs/Tano: Laboratory Tests 07/24/16 08: Anion Gap 9, Estimated GFR > 60, BUN/Creatinine Ratio 27.1 H, Glucose 151 H, Calcium 9.4, Total Bilirubin 0.5, AST 21, ALT 27, Alkaline Phosphatase 60, Total Protein 6.7, Albumin 4.1, Globulin 2.6, Albumin/Globulin Ratio 1.6, CBC w Diff NO MAN DIFF REQ, RBC 5.37, MCV 81.5, MCH 27.0, RDW 14.1, Gran % 82.3 H, Lymphocytes % 10.4 L, Monocytes % 7.0, Eosinophils % 0.1, Basophils % 0.2, Absolute Granulocytes 3.4, Absolute Lymphocytes 0.4 L, Absolute Monocytes 0.3, Absolute Eosinophils 0, Absolute Basophils 0, PUBS MCHC 33.2 Microbiology 07/23 113 URINE ROUT: Legionella Antigen - COMP 07/23 1133 URINE ROUT: Streptococcus pneumoniae Antigen (M - COMP Assessment/Plan Impression/Plan: 76-year-old with severe COPD admitted with exacerbation and suspected left lower lobe community-acquired pneumonia, complicated by hypoxic respiratory failure. She has albuterol nebulizer at home which she uses without difficulty. I suspect her experiences related to combination of albuterol and high-dose steroids. Recommendations: Continue IV antibiotics IV steroids and supplemental oxygen. Increase activity out of bed. Repeat PA and lateral chest x-ray. If there is no infiltrate present now antibiotics Consult Acknowledgment - Thank you for your consult request.
--- NOTE | 2016-07-25 12:23 | Cons- Cardiology ---
General Information and HPI Consulting Request Date of Consult: 07/25/16 Requested By: RUDDY BOWERS MD Reason for Consult: History of coronary artery disease, hypotension Source of Information: patient, family, old records Exam Limitations: no limitations History of Present Illness: The patient is a 76-year-old woman with a past medical history of severe COPD ( when necessary oxygen use at home), coronary artery disease, hypertension and hyperlipidemia. She presented to our hospital with symptoms of increasing dyspnea for a period of approximately 3 days, and was felt to have an acute COPD exacerbation as well as possible pneumonia. The patient states having symptoms of gradually increasing dyspnea for a period of approximately 3 days productive cough. There is been no concurrent symptoms of chest pain orthopnea nor increasing pedal edema. On arrival, room air oxygen saturation was 90%. She had improvement with nebulizers well as steroids administered in the emergency room, and was initiated on antibiotics. Subsequent chest x-rays demonstrated a possible retrocardiac patchy infiltrate. Of note, an echocardiogram performed several months ago demonstrated normal LV function and no significant valvular dysfunction. Recent stress testing was negative for infarct or ischemia. The patient's initial troponin isoenzyme was normal. Allergies/Medications Allergies: Coded Allergies: Penicillins (Severe, DIFF BREATHING, SWELLING 07/23/16) bupropion (From WELLBUTRIN) (Intermediate, WELTS 09/16/15) morphine (Intermediate, ANXIOUS AND SOB 09/16/15) Home Med List: Albuterol Sulfate (Proair Hfa) 8.5 GM HFA.AER.AD 2 PUF INH PRN COPD (Reported ) Albuterol Sulfate 2.5 MG/3 ML VIAL.NEB 1 Vial INH/MARAL PRN COPD (Reported) Alprazolam 0.5 MG TABLET 1 TAB PO DAILY NEEDED PRN ANXIETY (Reported) Aspirin (Children's Aspirin) 81 MG TAB.CHEW 1 TAB PO DAILY HEART/BLOOD ( Reported) Budesonide/Formoterol Fumarate (Symbicort 160-4.5 Mcg Inhaler) 10.2 GM HFA.AER.AD 2 PUF INH BID COPD (Reported) Cyanocobalamin (Vitamin B-12) (Cyanocobalamin Injection) 1,000 MCG/1 ML VIAL 1 ML IM Q30D SUPPLEMENT (Reported) Estradiol (Estrace) 0.5 MG TABLET 1 TAB PO DAILY HRT (Reported) Ipratropium/Albuterol Sulfate (Iprat-Albut 0.5-3(2.5) MG/3 Ml) 3 ML AMPUL.NEB 3 ML INH PRN COPD (Reported) Isosorbide Mononitrate (Isosorbide Mononitrate ER) 60 MG TAB.ER.24H 1 TAB PO DAILY BP (Reported) Metoprolol Succinate 25 MG TAB.ER.24H 1 TAB PO DAILY BP (Reported) Montelukast Sodium (Singulair) 10 MG TABLET 1 TAB PO DAILY COPD (Reported) Rosuvastatin Calcium (Crestor) 20 MG TABLET 1 TAB PO DAILY CHOLESTEROL ( Reported) Tiotropium [place] (Spiriva) 18 MCG CAP.W.DEV 1 CAP INH DAILY COPD (Reported) Valsartan/Hydrochlorothiazide (Diovan Hct 160-12.5 MG Tab) 1 EACH TABLET 1 TAB PO DAILY BP (Reported) Current Medications: Current Medications Sig/Jennifer Start time Last Medication Dose Route Stop Time Status Admin Albuterol Sulfate 3 ML EVERY 4 HRS/AWAKE 07/23 2000 DC 07/24 INH 1209 Albuterol Sulfate 3 ML Q4 HRS NEEDED PRN 07/23 0830 AC 07/25 INH 1002 Alprazolam 0.25 MG ONCE ONE 07/24 2145 DC 07/24 PO 07/24 2146 2201 Alprazolam 0.5 MG DAILY PRN 07/23 0930 AC 07/25 PO 07/30 0929 1111 Aspirin 81 MG DAILY 07/23 1000 AC 07/25 PO 0941 Atorvastatin Calcium 20 MG 1700 08 1700 AC 07/24 PO 1812 Azithromycin 500 MG DAILY 07/23 1000 AC 07/25 Dextrose/Water 250 ML IV 0939 Budesonide/ 2 PUF BID 07/23 1000 AC 07/25 Formoterol Fumarate INH 0700 Ceftriaxone Sodium 1,000 MG DAILY 07/24 1000 AC 07/25 IV 0939 Enoxaparin Sodium 40 MG DAILY 07/23 1000 AC 07/25 SC 0942 Estradiol 0.5 MG DAILY 07/23 1000 AC 07/25 PO 0941 Guaifenesin 600 MG Q12 07/23 1000 AC 07/25 PO 0942 Isosorbide 60 MG DAILY 07/23 1000 AC 07/25 Mononitrate PO 0942 Losartan Potassium 50 MG DAILY 07/23 1000 AC 07/25 PO 0942 Methylprednisolone 40 MG Q6 07/25 1200 AC IV Methylprednisolone 40 MG Q8 07/23 1400 DC 07/25 IV 0508 Metoprolol Succinate 12.5 MG DAILY 07/25 1000 AC 07/25 PO 0942 Metoprolol Succinate 25 MG DAILY 07/23 1000 DC 07/24 PO 0925 Montelukast Sodium 10 MG QPM 07/23 2200 AC 07/24 PO 1812 Patient Medication 1 ED .STK-MED ONE 07/24 1335 DC Teaching ED 07/24 1336 Tiotropium [place] 1 PUF DAILY 07/23 1000 AC 07/25 INH 0659 Review of Systems Review of Systems: The review of systems is negative for chest pains, palpitations nor lightheadedness. The remainder of the 14 point review of systems is noncontributory with the exception of above. Past History Travel History Traveled to [place] past 21 day No Medical History Blood Transfusion Hx: No Neurological: NONE EENT: cataracts Cardiovascular: CAD, hypertension, hyperlipidemia, myocardial infarction ( 25 YRS AGO AND 10 YRS AGO) Respiratory: COPD Gastrointestinal: GERD Hepatic: cholelithiasis Renal: NONE Musculoskeletal: spinal stenosis Psychiatric: anxiety Endocrine: NONE Blood Disorders: VITAMIN B12 DEFICIENCY Cancer(s): NONE SURGICAL INSTRUMENT TECHNICIAN/Reproductive: NONE Other Medical Hx: A she had a remote angioplasty 25 years ago. 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 cARDIAC ANGIOPLASTY WITHOUT STENTS Family History Relations & Conditions If Any: Relation not specified for: *No pertinent family history Psychosocial History Where Do You Live? Home Who Do You Live With? child Services at Home: Oxygen Primary Language: Canadian Smoking Status: Former Smoker ETOH Use: denies use Illicit Drug Use: denies illicit drug use Functional Ability ADLs Independent: dressing, eating, toileting, bathing. Ambulation: independent IADLs Independent: shopping, housework, finances, food prep, telephone, transportation , medication admin. Exam & Diagnostic Data Vital Signs and I&O Vital Signs Date Time Temp Pulse Resp B/P Pulse O2 O2 Flow FiO2 Ox Delivery Rate 07/25 1004 98 Nasal 4.0L Cannula 07/25 941 70 118/70 07/25 0842 70 118/70 07/25 0942 70 118/70 07/25 0800 95 Nasal 3.5L Cannula 07/25 0626 97.8 64 20 118/64 94 Nasal 3.5L Cannula 07/25 0000 Nasal 3.5L Cannula 07/24 2144 97.7 66 18 94/60 94 Nasal 3.5L Cannula 07/24 1905 91 Nasal 3.0L Cannula 07/24 1853 93 Nasal 3.0L Cannula 07/24 1600 98 Nasal 4.0L Cannula 07/24 1432 98.8 70 22 110/56 98 Intake & Output 07/25 0800 07/25 0000 07/24 0807/24 0000 Intake Total 340 240 750 200 120 Output Total Balance 340 240 750 200 120 Intake, IV 250 Intake, Oral 340 240 500 200 120 Patient 135 lb Weight Physical Exam: General: Nontoxic, no apparent distress. HEENT: Sclera and conjunctiva within normal limits, without xanthelasmas. Neck: Carotids 2+ without bruits. Respiratory: Scattered rhonchi, air movement is decreased at bases, without accessory respiratory muscle use. Heart: Regular rate and rhythm, without murmurs, without JVD. Abdomen: Soft, nontender, no masses, normoactive bowel sounds. Extremities: Without clubbing, cyanosis, without edema. Neuro: Nonfocal exam, strength, 5 out of 5 Skin: Within normal limits without lesions. Psych: Mood and affect: Normal Labs/[place] Results: Laboratory Tests 07/25 07/24 1050 0802 Blood Gas pH (7.35 - 7.45 PH) 7.39 pCO2 (35 - 45 TORR) 53 H pO2 (80 - 100 TORR) 65 L HCO3 (21 - 28 MEQ/L) 31 H ABG O2 Sat (Measured) (>96.0 %) 93.0 L P-50 (Temp Corrected) YES Carboxyhemoglobin (1.5 - 5.0 %) 1.4 L O2 Concentration % 4L Temperature (97.0 - 100.0 FARH) 97.8 O2 Delivery Method NC Chemistry Sodium (137 - 145 mmol/L) 139 Potassium (3.5 - 5.1 mmol/L) 4.0 Chloride (98 - 107 mmol/L) 99 Carbon Dioxide (22 - 30 mmol/L) 31 H Anion Gap (5 - 16) 9 BUN (7 - 17 mg/dL) 19 H Creatinine (0.5 - 1.0 mg/dL) 0.7 Estimated GFR (>60 ml/min) > 60 BUN/Creatinine Ratio (7 - 25 %) 27.1 H Glucose (65 - 99 mg/dL) 151 H Calcium (8.4 - 10.2 mg/dL) 9.4 Total Bilirubin (0.2 - 1.3 mg/dL) 0.5 AST (14 - 36 U/L) 21 ALT (9 - 52 U/L) 27 Alkaline Phosphatase (<127 U/L) 60 Total Protein (6.3 - 8.2 g/dL) 6.7 Albumin (3.5 - 5.0 g/dL) 4.1 Globulin (1.9 - 4.2 gm/dL) 2.6 Albumin/Globulin Ratio (1.1 - 2.2 %) 1.6 Hematology CBC w Diff NO MAN DIFF REQ WBC (4.8 - 10.8 /CUMM) 4.2 L RBC (4.20 - 5.40 /CUMM) 5.37 Hgb (12.0 - 16.0 G/DL) 14.5 Hct (37 - 47 %) 43.7 MCV (81.0 - 99.0 FL) 81.5 MCH (27.0 - 31.0 PG) 27.0 RDW (11.5 - 14.5 %) 14.1 Plt Count (/CUMM) Gran % (42.2 - 75.2 %) 82.3 H Lymphocytes % (20.5 - 51.1 %) 10.4 L Monocytes % (1.7 - 9.3 %) 7.0 Eosinophils % (0 - 5 %) 0.1 Basophils % (0.0 - 2.0 %) 0.2 Absolute Granulocytes (1.4 - 6.5 /CUMM) 3.4 Absolute Lymphocytes (1.2 - 3.4 /CUMM) 0.4 L Absolute Monocytes (0.10 - 0.60 /CUMM) 0.3 Absolute Eosinophils (0.0 - 0.7 /CUMM) 0 Absolute Basophils (0.0 - 0.2 /CUMM) 0 PUBS MCHC (33.0 - 37.0 G/DL) 33.2 Miscellaneous Phlebotomy Draw Site RIGHT RADIAL Assessment/Plan Assessment/Plan 76-year-old woman with a past medical history of severe COPD (when necessary oxygen use at home), coronary artery disease, hypertension and hyperlipidemia. She presented to our hospital with symptoms of increasing dyspnea for a period of approximately 3 days, and was felt to have an acute COPD exacerbation as well as possible pneumonia. Pneumonia and COPD/hypoxia: Continue treatment as per pulmonary and medical staff. There is no concurrent evidence for congestive heart failure as an etiology of her underlying hypoxia. Coronary artery disease: Stable. We will resume her outpatient regimen when blood pressures permit. Hypotension: Likely due to her acute illness as well as concurrent medications. I agree with reduction of her current doses until improved. We will attempt to reinstitute her outpatient regimen prior to discharge. Thank you for allowing us to participate in the care of your patient. Please do not hesitate to contact us further with any questions. Sincerely, Gerard Rincon MD [facility] Consult Acknowledgment - Thank you for your consult request.
--- NOTE | 2016-07-25 12:32 | RADIOLOGY REPORT ---
EXAMINATION: XR CHEST CLINICAL INFORMATION: Shortness of breath. COMPARISON: 07/23/2016 TECHNIQUE: 2 views of the chest were obtained. FINDINGS: Lungs are hyperexpanded there is suggestion of minimal atelectasis in the lung bases. No acute airspace opacification, edema or pleural effusion. Cardiac silhouette is borderline enlarged. Thoracic aorta is calcified. Intact fusion hardware is seen in the lower cervical spine. IMPRESSION: 1. Pulmonary emphysema. 2. No radiographic evidence of acute pneumonia.
--- NOTE | 2016-07-25 13:15 | NUR ---
Physical Therapy: Patient refused to participate in physical therapy this afternoon. She said she was too tired. Patient stated that she had been walking around the room independently to the bathroom and chair. She stated that she lives at home with her daughter who can help her around if she needs any help. She has 5 steps into her home with railings. Patient states that she feels weak but that she has still been able to walk around. Will reattempt as appropriate.
[2016-07-25 15:17] VITALS: BP 150/70
[2016-07-25 22:56] VITALS: BP 130/70
[2016-07-26 07:02] VITALS: BP 124/70
--- NOTE | 2016-07-26 13:47 | PN- Housestaff ---
LAKSHMIGÉNESIS 07/26/16 1347: Subjective Follow-up For: Shortness of breath. Worsening cough. Subjective: Patient states having difficulty with albuterol nebulizer treatment. She states that: She becomes anxious and it causes discomfort. Spoke with patient at length explaining her the importance of albuterol treatment. She understood the benefits and agrees with the plan of management to treat her anxiety around the clock and continue with albuterol treatment. She does report improved breathing in comparison to yesterday. Still has cough, shortness of breath and requiring 4 L of oxygen via nasal cannula. Denies any fevers or chills. Review of Systems Constitutional: Reports: see HPI. Objective Last 24 Hrs of Vital Signs/I&O Vital Signs Date Time Temp Pulse Resp B/P Pulse O2 O2 Flow FiO2 Ox Delivery Rate 07/26 1459 97.8 62 22 118/68 95 Nasal Cannula 07/26 0918 62 124/70 07/26 0917 62 124/70 07/26 0917 62 124/70 07/26 0754 95 Nasal 4.0L Cannula 07/26 0702 97.3 62 20 124/70 94 Nasal 4.0L Cannula 07/26 0000 Nasal 4.0L Cannula 07/25 2256 97.6 85 20 130/70 94 Nasal Cannula 07/25 2046 93 Nasal 4.0L Cannula Intake & Output 07/26 1600 07/26 0800 07/26 0000 Intake Total 400 600 Output Total Balance 400 600 Intake, Oral 400 600 Physical Exam General Appearance: Alert, Oriented X3, Cooperative, Moderate Distress Skin: No Rashes HEENT: Atraumatic Cardiovascular: Regular Rate, Normal S1, Normal S2 Lungs: bilateral wheezes and rhonchi on auscultation. Abdomen: Normal Bowel Sounds, Soft Neurological: Normal Gait, Normal Speech Extremities: No Clubbing, No Cyanosis, No Edema Current Medications: Current Medications Sig/Jennifer Start time Last Medication Dose Route Stop Time Status Admin Albuterol Sulfate 3 ML Q4 HRS NEEDED PRN 07/23 0830 AC 07/26 INH 0752 Alprazolam 0.25 MG TID 07/26 1600 AC 07/26 PO 08/02 1559 1617 Alprazolam 0.25 MG TID PRN 07/26 1312 DC PO 07/26 1559 Alprazolam 0.5 MG DAILY PRN 07/23 0930 DC 07/26 PO 07/30 0929 0932 Aspirin 81 MG DAILY 07/23 1000 AC 07/26 PO 0917 Atorvastatin Calcium 20 MG 1700 07/23 1700 AC 07/25 PO 1658 Azithromycin 500 MG DAILY 07/23 1000 AC 07/26 Dextrose/Water 250 ML IV 0918 Budesonide/ 2 PUF BID 07/23 1000 AC 07/26 Formoterol Fumarate INH 0919 Enoxaparin Sodium 40 MG DAILY 07/23 1000 AC 07/26 SC 0918 Estradiol 0.5 MG DAILY 07/23 1000 AC 07/26 PO 0917 Guaifenesin 600 MG Q12 07/23 1000 AC 07/26 PO 0917 Isosorbide 60 MG DAILY 07/23 1000 AC 07/26 Mononitrate PO 0917 Losartan Potassium 50 MG DAILY 07/23 1000 AC 07/26 PO 0917 Methylprednisolone 40 MG Q6 07/25 1200 AC 07/26 IV 1621 Metoprolol Succinate 12.5 MG DAILY 07/25 1000 AC 07/26 PO 0918 Montelukast Sodium 10 MG QPM 07/23 2200 AC 07/25 PO 2043 Tiotropium [place] 1 PUF DAILY 07/23 1000 AC 07/26 INH 0917 Last 24 Hrs of Lab/Tano Results Last 24 Hrs of Labs/Mics: Microbiology 07/26 07 LOWER RESP: Respiratory Culture - CAN Cancelled: NUMBER OF SQUAMOUS CELLS INDICATES POOR QUALITY SPECIMEN 07/26 07 LOWER RESP: Gram Stain - CAN Cancelled: NUMBER OF SQUAMOUS CELLS INDICATES POOR QUALITY SPECIMEN Assessment/Plan Assessment: Problem list Acute hypoxemic respiratory failure Continue azithromycin. Solu-Medrol 40 mg every 6. Supplemental oxygen. TRC nebs. Xanax 0.25 mg 3 times a day to treat albuterol induced anxiety. Follow-up on sputum cultures. History of hypertension Continue metoprolol at reduced dose. Continue holding HCTZ. Continue losartan. Heart healthy diet Subcutaneous Lovenox for DVT prophylaxis Full code Problem List: 1. COPD (chronic obstructive pulmonary disease) Pain Ratin Pain Location: Not obtainable Pain Goal: Remain pain free Pain Plan: Tylenol if needed Tomorrow's Labs & Rationales: Not needed. RUDDY BOWERS MD 07/26/16 8003: Attending MD Review Statement Attending Statement Attending MD Statement: examined this patient, discuss w/resident/PA/FERMENTER OPERATOR, agreed w/resident/PA/FERMENTER OPERATOR, discussed with family, reviewed EMR data (avail), discussed with nursing, amended to note Attending Assessment/Plan: The patient was seen and discussed with house staff. Will increase Xanax to 0.25 mg tid as patient has anxiety. Continue close respiratory observation.
--- NOTE | 2016-07-26 14:21 | PN- Pulmonary ---
Subjective HPI/Critical Care Issues: The patient is awake and alert. She continues to feel weak. Her breathing however is better but not back to baseline. She still has a cough and chest congestion. The patient's blood pressure has been noted to be mildly low noting her antihypertensives are being adjusted by the primary team and cardiology. Objective Current Medications: Current Medications Sig/Jennifer Start time Last Medication Dose Route Stop Time Status Admin Albuterol Sulfate 3 ML Q4 HRS NEEDED PRN 07/23 0930 AC 07/26 INH 0752 Alprazolam 0.25 MG TID 07/26 1600 AC PO 08/02 1559 Alprazolam 0.25 MG TID PRN 07/26 1312 r PO 07/26 1559 Alprazolam 0.5 MG DAILY PRN 07/23 0930 DC 07/26 PO 07/30 0929 0932 Aspirin 81 MG DAILY 07/23 1000 AC 07/26 PO 0917 Atorvastatin Calcium 20 MG 1700 07/23 1700 AC 07/25 PO 1658 Azithromycin 500 MG DAILY 07/23 1000 AC 07/26 Dextrose/Water 250 ML IV 0918 Budesonide/ 2 PUF BID 07/23 1000 AC 07/26 Formoterol Fumarate INH 0919 Ceftriaxone Sodium 1,000 MG DAILY 07/24 1000 DC 07/25 IV 0939 Enoxaparin Sodium 40 MG DAILY 07/23 1000 AC 07/26 SC 0918 Estradiol 0.5 MG DAILY 07/23 1000 AC 07/26 PO 0917 Guaifenesin 600 MG Q12 07/23 1000 AC 07/26 PO 0917 Isosorbide 60 MG DAILY 07/23 1000 AC 07/26 Mononitrate PO 0917 Losartan Potassium 50 MG DAILY 07/23 1000 AC 07/26 PO 0917 Methylprednisolone 40 MG Q6 07/25 1200 AC 07/26 IV 1351 Metoprolol Succinate 12.5 MG DAILY 07/25 1000 AC 07/26 PO 0918 Montelukast Sodium 10 MG QPM 07/23 2200 AC 07/25 PO 2043 Tiotropium [place] 1 PUF DAILY 07/23 1000 AC 07/26 INH 0917 Vital Signs & I&O Last 24 Hrs of Vitals and I&O: Vital Signs Date Time Temp Pulse Resp B/P Pulse O2 O2 Flow FiO2 Ox Delivery Rate 07/26 917 62 124/70 07/26 916 62 124/70 02/11 0917 62 124/70 07/26 0754 95 Nasal 4.0L Cannula 07/26 0702 97.3 62 20 124/70 94 Nasal 4.0L Cannula 07/26 0000 Nasal 4.0L Cannula 07/25 2256 97.6 85 20 130/70 94 Nasal Cannula 07/25 2046 93 Nasal 4.0L Cannula 07/25 1600 Nasal 4.0L Cannula 07/25 1517 97.8 80 20 150/70 90 Intake & Output 07/26 1600 07/26 0800 07/26 0000 Intake Total 600 Output Total Balance 600 Intake, Oral 600 Exam General Appearance: no apparent distress, alert, awake, comfortable Head: atraumatic, normal appearance Neck: normal inspection, supple Respiratory: decreased breath sounds, few faint expiratory wheezes Cardiovascular: regular rate/rhythm Abdomen: normal bowel sounds, soft, non-tender Extremities: no edema Skin: intact, normal color, warm/dry Diagnostic Data CXR Findings: 1. Pulmonary emphysema. 2. No radiographic evidence of acute pneumonia. Impression/Plan Impression/Plan Impression/Plan: 1. Acute exacerbation of COPD. 2. Repeat chest x-ray does not suggest pneumonia, antibiotics have been narrowed to azithromycin. 3. History of hypertension. 4. Hyperlipidemia. 5. History of anxiety. Recommendations: * Agree with narrowing antibiotics to azithromycin. * Continue to monitor culture results. * Continue Solu-Medrol at present dose. * Maintain oxygen to keep saturations greater than 92%. * Continue total respiratory care/nebulizer treatments. * Continue Mucinex and Spiriva. * DVT prophylaxis. * Blood pressure medication adjustment as per primary team.
[2016-07-26 14:59] VITALS: BP 118/68
[2016-07-26 22:35] VITALS: BP 160/80
[2016-07-27 07:09] VITALS: BP 134/74
--- NOTE | 2016-07-27 11:00 | PN- Housestaff ---
LASHELL ROSE MD 07/27/16 1100: Subjective Follow-up For: Acute hypoxemic respiratory failure COPD exacerbation Subjective: Patient seen and examined. She is seen sitting upright at bedside resting comfortably attained on supplemental oxygen via nasal cannula. She appears to be in no acute distress. At her bedside are to family members whom are up-to- date about her medical condition and have no further questions at this time. Patient reports exertional shortness of breath but otherwise admits that she feels much better than when she initially came in. She is also complaining of a persistent productive cough. Otherwise she denies any headache, fever, chills, chest pain, palpitations, worsening shortness of breath, nausea, vomiting, diarrhea. No overnight events reported. Review of Systems Constitutional: Reports: see HPI. Objective Last 24 Hrs of Vital Signs/I&O Vital Signs Date Time Temp Pulse Resp B/P Pulse O2 O2 Flow FiO2 Ox Delivery Rate 07/27 1415 98.0 67 22 120/60 94 Nasal Cannula 07/27 1413 98.0 67 22 120/60 94 Room Air 07/27 0950 68 130/64 07/27 0943 68 130/64 07/27 0943 68 130/64 07/27 0922 97 Nasal 3.0L Cannula 07/27 0800 93 Nasal 3.0L Cannula 07/27 0709 98.4 72 20 134/74 94 Nasal 4.0L Cannula 07/27 0000 96 Nasal 3.0L Cannula 07/26 2235 97.5 65 22 160/80 96 Nasal 4.0L Cannula Intake & Output 07/27 1600 07/27 0800 07/27 0000 Intake Total 500 400 500 Output Total Balance 500 400 500 Intake, Oral 500 400 500 Physical Exam General Appearance: Alert, Oriented X3, Cooperative, No Acute Distress Other Physical Findings: General -well-developed, well-nourished elderly woman in no acute distress HEENT - NCAT, PERRL, EOMI, anicteric sclera, nasal cannula in place Cardio - S1, S2 w/o murmurs/gallops/rubs Resp -minimal bibasilar wheezing, no crackles GI - soft, nontender, nondistended, bowel sounds present Neuro - Awake and alert, CN II - XII grossly intact Extremities - no edema, pulses intact Current Medications: Current Medications Sig/Jennifer Start time Last Medication Dose Route Stop Time Status Admin Albuterol Sulfate 2 PUF Q4 07/26 2200 AC 07/27 INH 1635 Albuterol Sulfate 3 ML Q4 HRS NEEDED PRN 07/23 0930 AC 07/26 INH 0752 Alprazolam 0.25 MG TID 07/26 1600 AC 07/27 PO 08/02 1559 1636 Aspirin 81 MG DAILY 07/23 1000 AC 07/27 PO 0941 Atorvastatin Calcium 20 MG 1700 07/23 1700 AC 07/27 PO 1634 Azithromycin 500 MG DAILY 07/23 1000 DC 07/27 Dextrose/Water 250 ML IV 0900 Budesonide/ 2 PUF BID 07/23 1000 AC 07/27 Formoterol Fumarate INH 0948 Enoxaparin Sodium 40 MG DAILY 07/23 1000 AC 07/27 SC 0946 Estradiol 0.5 MG DAILY 07/23 1000 AC 07/27 PO 0945 Guaifenesin 600 MG Q12 07/23 1000 AC 07/27 PO 0946 Isosorbide 60 MG DAILY 07/23 1000 AC 07/27 Mononitrate PO 0943 Losartan Potassium 50 MG DAILY 07/23 1000 AC 07/27 PO 0943 Methylprednisolone 40 MG Q6 07/25 1200 AC 07/27 IV 1634 Metoprolol Succinate 12.5 MG DAILY 07/25 1000 AC 07/27 PO 0950 Montelukast Sodium 10 MG QPM 07/23 2200 AC 07/26 PO 2151 Tiotropium [place] 1 PUF DAILY 07/23 1000 AC 07/27 INH 0947 Assessment/Plan Assessment: Patient continues to well well maintained on intravenous antibiotics and steroids. She is still requiring supplemental oxygen, but is refusing further breathing treatments as it is making her tremulous. Problem list: -COPD exacerbation on 2-3.0 L O2 as needed at home -Community-acquired pneumonia, on antibiotics -Coronary artery disease, on isosorbide/aspirin -Myocardial infarction with angioplasty, no stents -Hypertension, on metoprolol/valsartan/hydrochlorothiazide -Hyperlipidemia, on atorvastatin -Anxiety, on Xanax -Spinal stenosis Plan: -General medicine -Monitor vital signs for hemodynamic instability and fever -Supplemental oxygen, goal >92%, taper as tolerated -TRC and albuterol when necessary -Continue home meds -Mucinex/Spiriva -Azithromycin 500 mg IV daily, 5 day total course -Solu-Medrol 40 mg IV every 6 hours -Pulmonology consult -Follow-up culture and sensitivities -Her healthy diet -DVT prophylaxis -Full code Problem List: 1. Pneumonia Pain Ratin Pain Location: None Pain Goal: Remain pain free Pain Plan: As noted in plan Tomorrow's Labs & Rationales: Complete blood count-pneumonia BEP-electrolytes RUDDY BOWERS MD 07/27/16 1313: Attending MD Review Statement Attending Statement Attending MD Statement: examined this patient, discuss w/resident/PA/ELEVATOR CONSTRUCTOR HYDRAULIC, agreed w/resident/PA/ELEVATOR CONSTRUCTOR HYDRAULIC, discussed with family, reviewed EMR data (avail), discussed with nursing, amended to note Attending Assessment/Plan: The patient was seen and discussed with house staff. Anxiety better on tid Xanax. Slightly improved air movement on exam, however still diminished. Appreciate Pulmonary follow-up. Consider decrease dose of Medrol if suggested by pulmonary.
--- NOTE | 2016-07-27 11:24 | PN- Pulmonary ---
Subjective HPI/Critical Care Issues: The patient is sleeping comfortably. She is arousable. There were no overnight events reported by nursing. Objective Current Medications: Current Medications Sig/Jennifer Start time Last Medication Dose Route Stop Time Status Admin Albuterol Sulfate 2 PUF Q4 07/26 2200 AC 07/27 INH 0952 Albuterol Sulfate 3 ML Q4 HRS NEEDED PRN 07/23 0930 AC 07/26 INH 0752 Alprazolam 0.25 MG TID 07/26 1600 AC 07/27 PO 08/02 1559 0955 Alprazolam 0.25 MG TID PRN 07/26 1312 DC PO 07/26 1559 Alprazolam 0.5 MG DAILY PRN 07/23 0930 DC 07/26 PO 07/30 0929 0932 Aspirin 81 MG DAILY 07/23 1000 AC 07/27 PO 0941 Atorvastatin Calcium 20 MG 1700 07/23 1700 AC 07/26 PO 1715 Azithromycin 500 MG DAILY 07/23 1000 DC 07/26 Dextrose/Water 250 ML IV 0918 Budesonide/ 2 PUF BID 07/23 1000 AC 07/27 Formoterol Fumarate INH 0948 Enoxaparin Sodium 40 MG DAILY 07/23 1000 AC 07/27 SC 0946 Estradiol 0.5 MG DAILY 07/23 1000 AC 07/27 PO 0945 Guaifenesin 600 MG Q12 07/23 1000 AC 07/27 PO 0946 Isosorbide 60 MG DAILY 07/23 1000 AC 07/27 Mononitrate PO 0943 Losartan Potassium 50 MG DAILY 07/23 1000 AC 07/27 PO 0943 Methylprednisolone 40 MG Q6 07/25 1200 AC 07/27 IV 0553 Metoprolol Succinate 12.5 MG DAILY 07/25 1000 AC 07/27 PO 0950 Montelukast Sodium 10 MG QPM 07/23 2200 AC 07/26 PO 2151 Tiotropium [place] 1 PUF DAILY 07/23 1000 AC 07/27 INH 0947 Vital Signs & I&O Last 24 Hrs of Vitals and I&O: Vital Signs Date Time Temp Pulse Resp B/P Pulse O2 O2 Flow FiO2 Ox Delivery Rate 07/27 0950 68 130/64 07/27 0943 68 130/64 07/27 0943 68 130/64 07/27 0922 97 Nasal 3.0L Cannula 07/27 0709 98.4 72 20 134/74 94 Nasal 4.0L Cannula 07/27 0000 96 Nasal 3.0L Cannula 07/26 2235 97.5 65 22 160/80 96 Nasal 4.0L Cannula 07/26 1845 97 Nasal 4.0L Cannula 07/26 1459 97.8 62 22 118/68 95 Nasal Cannula Intake & Output 07/27 1600 07/27 0800 07/27 0000 Intake Total 400 500 Output Total Balance 400 500 Intake, Oral 400 500 Exam General Appearance: no apparent distress, alert, awake, comfortable Head: atraumatic, normal appearance Neck: normal inspection, supple Respiratory: decreased breath sounds, few faint expiratory wheezes Cardiovascular: regular rate/rhythm Abdomen: normal bowel sounds, soft, non-tender Extremities: no edema Skin: intact, normal color, warm/dry Results Last 24 Hrs of Micro Results: Cultures negative to date. Impression/Plan Impression/Plan Impression/Plan: 1. Acute exacerbation of COPD. 2. Acute bonchitis. 3. History of hypertension. 4. Hyperlipidemia. 5. History of anxiety. Recommendations: * Complete 5 days of azithromycin. * Continue to monitor culture results. * Continue Solu-Medrol at present dose. * Maintain oxygen to keep saturations greater than 92%. * Continue total respiratory care/nebulizer treatments. * Continue Mucinex and Spiriva. * DVT prophylaxis.
--- NOTE | 2016-07-27 12:36 | PN- Cardiology ---
Subjective Subjective: The patient is comfortable. Short of breath is improving. No chest pain. No palpitations. No diaphoresis. No lightheadedness or dizziness. No nausea or vomiting. Objective Vital Signs and I&Os Vital Signs Date Time Temp Pulse Resp B/P Pulse O2 O2 Flow FiO2 Ox Delivery Rate 07/27 0950 68 130/64 07/27 0943 68 130/64 07/27 0943 68 130/64 07/27 0922 97 Nasal 3.0L Cannula 07/27 0709 98.4 72 20 134/74 94 Nasal 4.0L Cannula 07/27 0000 96 Nasal 3.0L Cannula 07/26 2235 97.5 65 22 160/80 96 Nasal 4.0L Cannula 07/26 1845 97 Nasal 4.0L Cannula 07/26 1459 97.8 62 22 118/68 95 Nasal Cannula Intake & Output 07/27 1600 07/27 0800 07/27 0000 07/26 1600 07/26 0800 07/26 0000 Intake Total 400 500 400 600 Output Total Balance 400 500 400 600 Intake, Oral 400 500 400 600 Physical Exam: Gen: NAD HEENT: normal Lungs: Scattered rhonchi, normal resp. effort Heart: RRR, S1, S2, no murmurs Abdomen: Soft, nontender, no masses Extremities: No clubbing, cyanosis, or edema. Neuro: Alert and oriented x 3, cranial nerves intact Current Medications: Current Medications Sig/Jennifer Start time Last Medication Dose Route Stop Time Status Admin Albuterol Sulfate 2 PUF Q4 07/26 2200 AC 07/27 INH 0952 Albuterol Sulfate 3 ML Q4 HRS NEEDED PRN 07/23 0930 AC 07/26 INH 0752 Alprazolam 0.25 MG TID 07/26 1600 AC 07/27 PO 08/02 1559 0955 Alprazolam 0.25 MG TID PRN 07/26 1312 DC PO 07/26 1559 Alprazolam 0.5 MG DAILY PRN 07/23 0930 DC 07/26 PO 07/30 0929 0932 Aspirin 81 MG DAILY 07/23 1000 AC 07/27 PO 0941 Atorvastatin Calcium 20 MG 1700 07/23 1700 AC 07/26 PO 1715 Azithromycin 500 MG DAILY 07/23 1000 DC 07/26 Dextrose/Water 250 ML IV 0918 Budesonide/ 2 PUF BID 07/23 1000 AC 07/27 Formoterol Fumarate INH 0948 Enoxaparin Sodium 40 MG DAILY 07/23 1000 AC 07/27 SC 0946 Estradiol 0.5 MG DAILY 07/23 1000 AC 07/27 PO 0945 Guaifenesin 600 MG Q12 07/23 1000 AC 07/27 PO 0946 Isosorbide 60 MG DAILY 07/23 1000 AC 07/27 Mononitrate PO 0943 Losartan Potassium 50 MG DAILY 07/23 1000 AC 07/27 PO 0943 Methylprednisolone 40 MG Q6 07/25 1200 AC 07/27 IV 0553 Metoprolol Succinate 12.5 MG DAILY 07/25 1000 AC 07/27 PO 0950 Montelukast Sodium 10 MG QPM 07/23 2200 AC 07/26 PO 2151 Tiotropium [place] 1 PUF DAILY 07/23 1000 AC 07/27 INH 0947 Results Recent Imaging Studies: Chest x-ray: 1. Pulmonary emphysema. 2. No radiographic evidence of acute pneumonia. Assessment/Plan Assessment/Plan Assessment: 1. Coronary artery disease, stable 2. Pneumonia and COPD 3. Hypotension, improved Plan: * Continue metoprolol, losartan, aspirin, and atorvastatin. * Antibiotics as per the medical service. Continue telemetry? Not applicable
[2016-07-27 14:13] VITALS: BP 120/60
[2016-07-27 14:15] VITALS: BP 120/60
[2016-07-27 23:22] VITALS: BP 150/80
[2016-07-28 07:27] VITALS: BP 150/80
--- NOTE | 2016-07-28 08:22 | PN- Pulmonary ---
Subjective HPI/Critical Care Issues: Patient feels improved but continues to have dyspnea on exertion Objective Current Medications: Current Medications Sig/Jennifer Start time Last Medication Dose Route Stop Time Status Admin Albuterol Sulfate 2 PUF Q4 07/26 2200 AC 07/28 INH 0626 Albuterol Sulfate 3 ML Q4 HRS NEEDED PRN 07/23 0930 AC 07/26 INH 0752 Alprazolam 0.25 MG TID 07/26 1600 AC 07/27 PO 08/02 1559 2055 Aspirin 81 MG DAILY 07/23 1000 AC 07/27 PO 0941 Atorvastatin Calcium 20 MG 1700 07/23 1700 AC 07/27 PO 1634 Azithromycin 500 MG DAILY 07/23 1000 DC 07/27 Dextrose/Water 250 ML IV 0900 Budesonide/ 2 PUF BID 07/23 1000 AC 07/27 Formoterol Fumarate INH 205 Enoxaparin Sodium 40 MG DAILY 07/23 1000 AC 07/27 SC 0946 Estradiol 0.5 MG DAILY 07/23 1000 AC 07/27 PO 0945 Guaifenesin 600 MG Q12 07/23 1000 AC 07/27 PO 2054 Isosorbide 60 MG DAILY 07/23 1000 AC 07/27 Mononitrate PO 0943 Losartan Potassium 50 MG DAILY 07/23 1000 AC 07/27 PO 0943 Methylprednisolone 40 MG Q6 07/25 1200 AC 07/28 IV 0626 Metoprolol Succinate 12.5 MG DAILY 07/25 1000 AC 07/27 PO 0950 Montelukast Sodium 10 MG QPM 07/23 2200 AC 07/27 PO 2055 Tiotropium [place] 1 PUF DAILY 07/23 1000 AC 07/27 INH 0947 Vital Signs & I&O Last 24 Hrs of Vitals and I&O: Vital Signs Date Time Temp Pulse Resp B/P Pulse O2 O2 Flow FiO2 Ox Delivery Rate 07/28 726 97.9 74 18 150/80 99 Nasal 3.0L Cannula 07/28 0000 Nasal 3.0L Cannula 07/27 2322 97.6 57 22 150/80 97 Nasal 3.0L Cannula 07/27 1840 94 Nasal 3.0L Cannula 07/27 1415 98.0 67 22 120/60 94 Nasal Cannula 07/27 1413 98.0 67 22 120/60 94 Room Air 07/27 0950 68 130/64 07/27 0943 68 130/64 07/27 0943 68 130/64 07/27 0922 97 Nasal 3.0L Cannula Intake & Output 07/28 1600 07/28 0800 07/28 0000 Intake Total 120 Output Total Balance 120 Intake, Oral 120 Oxygen saturation 3 L 99% exam for chest shows somewhat diminished breath sounds there are no wheezes heard cardiac exam shows regular S1 and S2 without murmurs Impression/Plan Impression/Plan Impression/Plan: 76-year-old with severe COPD admitted with exacerbation and suspected left lower lobe community-acquired pneumonia, complicated by hypoxic respiratory failure. She has albuterol nebulizer at home which she uses without difficulty. I suspect her experiences related to combination of albuterol and high-dose steroids. Patient is slowly improving there is no evidence of pneumonia Recommendations: DC IV steroids begin oral prednisone and complete course of antibiotics Taper FiO2. Given patient's severe underlying lung disease returned to premorbid status will likely take some time. Patient may benefit from outpatient pulmonary rehabilitation
--- NOTE | 2016-07-28 08:35 | PN- Housestaff ---
See Addendum Subjective Follow-up For: COPD exacerbation Subjective: Patient seen and examined. Feels better than yesterday but continues to experience exertional dyspnea. D-dimer negative from am. Patient has been afebrile, no leukocytosis. Q6 IV steriods to be switched to q12 today. Review of Systems Constitutional: Reports: see HPI. Objective Last 24 Hrs of Vital Signs/I&O Vital Signs Date Time Temp Pulse Resp B/P Pulse O2 O2 Flow FiO2 Ox Delivery Rate 07/28 1915 98 Nasal 3.0L Cannula 07/28 1600 Nasal 3.0L Cannula 07/28 1440 98.2 68 19 120/70 100 07/28 0924 60 144/80 07/28 0923 60 144/80 07/28 0923 60 144/80 07/28 0800 99 Nasal 3.0L Cannula 07/28 0727 97.9 74 18 150/80 99 Nasal 3.0L Cannula 07/28 0000 Nasal 3.0L Cannula 07/27 2322 97.6 57 22 150/80 97 Nasal 3.0L Cannula Intake & Output 07/28 1600 07/28 0800 07/28 0000 Intake Total 600 120 Output Total Balance 600 120 Intake, Oral 600 120 Patient 61.235 kg Weight Physical Exam General Appearance: Alert, Oriented X3, Cooperative, No Acute Distress Skin: No Rashes, No Breakdown HEENT: Atraumatic Neck: Supple Cardiovascular: Normal S1, Normal S2 Lungs: dec breath sounds b/l Abdomen: Soft, No Tenderness, No Hepatospenomegaly Current Medications: Current Medications Sig/Jennifer Start time Last Medication Dose Route Stop Time Status Admin Albuterol Sulfate 2 PUF Q4 07/26 2200 AC 07/28 INH 1729 Albuterol Sulfate 3 ML Q4 HRS NEEDED PRN 07/23 0930 AC 07/26 INH 0752 Alprazolam 0.25 MG TID 07/26 1600 AC 07/28 PO 08/02 1559 1545 Aspirin 81 MG DAILY 07/23 1000 AC 07/28 PO 0923 Atorvastatin Calcium 20 MG 1700 07/23 1700 AC 07/28 PO 1545 Budesonide/ 2 PUF BID 07/23 1000 AC 07/28 Formoterol Fumarate INH 0924 Enoxaparin Sodium 40 MG DAILY 07/23 1000 AC 07/28 SC 0923 Estradiol 0.5 MG DAILY 07/23 1000 AC 07/28 PO 0923 Guaifenesin 600 MG Q12 07/23 1000 AC 07/28 PO 0924 Hydrochlorothiazide 12.5 MG DAILY 07/28 1000 AC 07/28 PO 1149 Isosorbide 60 MG DAILY 07/23 1000 AC 07/28 Mononitrate PO 0923 Losartan Potassium 50 MG DAILY 07/23 1000 AC 07/28 PO 0923 Methylprednisolone 40 MG Q12H 07/28 1800 AC 07/28 IV 1728 Methylprednisolone 40 MG Q12 07/28 1000 DC IV Methylprednisolone 40 MG Q6 07/25 1200 DC 07/28 IV 0626 Metoprolol Succinate 12.5 MG DAILY 07/25 1000 AC 07/28 PO 0924 Montelukast Sodium 10 MG QPM 07/230 AC 07/27 PO 2054 Patient Medication 1 ED .STK-MED ONE 07/28 1421 NC Teaching ED 07/28 1422 Tiotropium [place] 1 PUF DAILY 07/23 1000 AC 07/28 INH 0856 Last 24 Hrs of Lab/Tano Results Last 24 Hrs of Labs/Mics: Laboratory Tests 07/28/16 0835: Anion Gap 8, Estimated GFR > 60, BUN/Creatinine Ratio 35.7 H, PT 10.9, INR 1.04 , D-Dimer < 200, CBC w Diff NO MAN DIFF REQ, RBC 5.16, MCV 83.2, MCH 27.0, RDW 14.2, MPV 8.4, Gran % 84.3 H, Lymphocytes % 12.4 L, Monocytes % 3.1, Eosinophils % 0, Basophils % 0.2, Absolute Granulocytes 3.8, Absolute Lymphocytes 0.6 L, Absolute Monocytes 0.1 L, Absolute Eosinophils 0, Absolute Basophils 0, PUBS MCHC 32.4 L Assessment/Plan Assessment: Patient is a 76-year-old female with PMH of COPD on 2-3 L of home oxygen as needed, hypertension, hyperlipidemia, coronary artery disease with history of [place] and angioplasty without stents, anxiety, vitamin B12 deficiency, spinal stenosis and varicose veins BIBA from home for worsening shortness of breath, chills, dry cough and chest congestion for last 3 days. Patient was very short of breath, on aerosol mask when she was brought into ER by EMS. She was also tachypneic with respiratory rate 28 breaths per minute. Oxygen saturation was 90-91% on room air. She was put on 2 L of oxygen by nasal cannula and oxygen saturation went up to 93-94%. Oxygen saturation went down to 88% during minimal exertion. She was given nebz treatment in ER. TMAX on admission 99. WBC count is normal. In ER she was given Solu-Medrol 125 mg IV 1, ceftriaxone 1 g 1 and doxycycline 100 mg 1. Problem list: -COPD exacerbation on 2-3.0 L O2 as needed at home -Community-acquired pneumonia, on antibiotics -Coronary artery disease, on isosorbide/aspirin -Myocardial infarction with angioplasty, no stents -Hypertension, on metoprolol/valsartan/hydrochlorothiazide -Hyperlipidemia, on atorvastatin -Anxiety, on Xanax -Spinal stenosis Acute hypoxic respiratory failure secondary to COPD and pneumonia Repeat CXR was not significant for pnemonia, ceftriaxone was d/cd on 07/26 Antibiotics narrowed to azithromycin. Solumedrol tapered to 40 mg q12 as patient feels slightly better today, will swith to PO prednisone on 07/29/16 TRC nebs as needed. Respiratory therapist on board Will continue on mucine History of hypertension Blood pressure slightly elevated this am, will restart her HCTZ and continue low dose BB due to possible broncho spasm. She takes 25 mg XL metoprolol at home, which is decreased to 12.5 daily. Patient is continued on 50 mg of losartan. will continue to monitor her closely. Car Dumper on board as per patients request Will hold her BP meds for pressures < 100 systolic Hyperlipidemia and anxiety Will continue her on home meds. Heart healthy diet Subcutaneous Lovenox for DVT prophylaxis Full code Problem List: 1. Asthma 2. COPD Pain Ratin Pain Location: none Pain Goal: Pain 4 or less Pain Plan: tylenol prn for pain Tomorrow's Labs & Rationales: none
[2016-07-28 10:02] LABS: PT 10.9 SEC (9.4-12.5)
[2016-07-28 10:08] LABS: ABSOLUTE BASOPHIL COUNT 0 /CUMM (0.0-0.2); ABSOLUTE EOSINOPHIL COUNT 0 /CUMM (0.0-0.7); ABSOLUTE GRANULOCYTE CT 3.8 /CUMM (1.4-6.5); ABSOLUTE LYMPH COUNT 0.6 /CUMM (1.2-3.4); ABSOLUTE MONOCYTE COUNT 0.1 /CUMM (0.10-0.60); BASOPHIL % 0.2 % (0.0-2.0); EOSINOPHIL % 0 % (0-5); GRANULOCYTE % 84.3 % (42.2-75.2); HEMATOCRIT 42.9 % (37-47); MEAN CORPUSCULAR HGB CONC 32.4 G/DL (33.0-37.0); MEAN CORPUSCULAR VOLUME 83.2 FL (81.0-99.0); MEAN PLATELET VOLUME 8.4 FL (7.4-10.4); RBC DISTRIBUTION WIDTH 14.2 % (11.5-14.5); RED BLOOD CELL CT 5.16 /CUMM (4.20-5.40); WHITE BLOOD CELL COUNT 4.6 /CUMM (4.8-10.8)
--- NOTE | 2016-07-28 11:53 | PN- Cardiology ---
Subjective Subjective: Patient's breathing not yet at baseline but she does feel that she is improving. Denies any chest pain or palpitations. Objective Vital Signs and I&Os Vital Signs Date Time Temp Pulse Resp B/P Pulse O2 O2 Flow FiO2 Ox Delivery Rate 07/28 0924 60 144/80 07/28 09 60 144/80 07/28 09 60 144/80 07/28 0800 99 Nasal 3.0L Cannula 07/28 0727 97.9 74 18 150/80 99 Nasal 3.0L Cannula 07/28 0000 Nasal 3.0L Cannula 07/27 2322 97.6 57 22 150/80 97 Nasal 3.0L Cannula 07/27 1840 94 Nasal 3.0L Cannula 07/27 1415 98.0 67 22 120/60 94 Nasal Cannula 07/27 1413 98.0 67 22 120/60 94 Room Air Intake & Output 07/28 1600 07/28 0800 07/28 0000 07/27 1600 07/27 0800 07/27 0000 Intake Total 120 500 400 500 Output Total Balance 120 500 400 500 Intake, Oral 120 500 400 500 Patient 135 lb Weight Physical Exam: General: no apparent distress. Alert. On nasal cannula oxygen. Eyes: No obvious scleral icterus. HEENT: No jugular venous distention or abnormal jugular venous pulsations. Cardiovascular: Normal intensity S1/S2. Regular. Respiratory: Decreased air entry bilaterally without wheezing or rales Abdomen: Soft, nontender with no guarding or rebound tenderness. Musculoskeletal: No clubbing or cyanosis noted, no edema Skin: warm Current Medications: Current Medications Sig/Jennifer Start time Last Medication Dose Route Stop Time Status Admin Albuterol Sulfate 2 PUF Q4 07/26 2200 AC 07/28 INH 0925 Albuterol Sulfate 3 ML Q4 HRS NEEDED PRN 07/23 0930 AC 07/26 INH 0752 Alprazolam 0.25 MG TID 07/26 1600 AC 07/28 PO 08/02 1559 0924 Aspirin 81 MG DAILY 07/23 1000 AC 07/28 PO 0923 Atorvastatin Calcium 20 MG 1700 07/23 1700 AC 07/27 PO 1634 Budesonide/ 2 PUF BID 07/23 1000 AC 07/28 Formoterol Fumarate INH 0924 Enoxaparin Sodium 40 MG DAILY 07/23 1000 AC 07/28 SC 0923 Estradiol 0.5 MG DAILY 07/23 1000 AC 07/28 PO 0923 Guaifenesin 600 MG Q12 07/23 1000 AC 07/28 PO 0924 Hydrochlorothiazide 12.5 MG DAILY 07/28 1000 AC PO Isosorbide 60 MG DAILY 07/23 1000 AC 07/28 Mononitrate PO 0923 Losartan Potassium 50 MG DAILY 07/23 1000 AC 07/28 PO 0923 Methylprednisolone 40 MG Q12H 07/28 1800 AC IV Methylprednisolone 40 MG Q12 07/28 1000 DC IV Methylprednisolone 40 MG Q6 07/25 1200 DC 07/28 IV 0626 Metoprolol Succinate 12.5 MG DAILY 07/25 1000 AC 07/28 PO 0924 Montelukast Sodium 10 MG QPM 07/23 2200 AC 07/27 PO 2055 Tiotropium [place] 1 PUF DAILY 07/23 1000 AC 07/28 INH 0856 Results Last 48 Hrs of Labs/Mics: Laboratory Tests 07/28/16 0835: Anion Gap 8, Estimated GFR > 60, BUN/Creatinine Ratio 35.7 H, PT 10.9, INR 1.04 , D-Dimer < 200, CBC w Diff NO MAN DIFF REQ, RBC 5.16, MCV 83.2, MCH 27.0, RDW 14.2, MPV 8.4, Gran % 84.3 H, Lymphocytes % 12.4 L, Monocytes % 3.1, Eosinophils % 0, Basophils % 0.2, Absolute Granulocytes 3.8, Absolute Lymphocytes 0.6 L, Absolute Monocytes 0.1 L, Absolute Eosinophils 0, Absolute Basophils 0, PUBS MCHC 32.4 L Recent Imaging Studies: CXR 07/25 1. Pulmonary emphysema. 2. No radiographic evidence of acute pneumonia. Assessment/Plan Assessment/Plan 1. Acute COPD exacerbation/bronchitis 2. History of CAD, stable 3. History of hypertension 4. History of hyperlipidemia Patient's breathing not at baseline but she does feel she is improving. Denies chest pain or palpitations. Blood pressure appears reasonably well-controlled on current regimen. Does not appear to be actively bronchospastic on exam today and so can continue on low-dose beta xiao therapy. Continue daily aspirin and statin therapy. Steroid regimen per pulmonary. She remains afebrile. José Miguel Fleming MD [facility] Continue telemetry? Not applicable
[2016-07-28 14:40] VITALS: BP 120/70
[2016-07-28 22:55] VITALS: BP 136/70
[2016-07-29 06:59] VITALS: BP 150/80
--- NOTE | 2016-07-29 07:43 | PN- Housestaff ---
RACHEAL BEE 07/29/16 0742: Subjective Follow-up For: COPD hypertension Subjective: Patient seen and examined. looks MUCH BETTER THAN YESTERDAY. Gets SOB on exertion. Her prednisone was tapered to 40 q12 yesterday. Will switch to PO today Blood pressure stable. Labs WNL. Review of Systems Constitutional: Reports: see HPI. Objective Last 24 Hrs of Vital Signs/I&O Vital Signs Date Time Temp Pulse Resp B/P Pulse O2 O2 Flow FiO2 Ox Delivery Rate 07/29 0659 98.5 58 18 150/80 95 Nasal 2.0L Cannula 07/28 2255 98.1 57 19 136/70 97 Nasal Cannula 07/28 1915 98 Nasal 3.0L Cannula 07/28 1600 Nasal 3.0L Cannula 07/28 1440 98.2 68 19 120/70 100 07/28 0924 60 144/80 07/28 0923 60 144/80 07/28 0923 60 144/80 Intake & Output 07/29 1600 07/29 0800 07/29 0000 Intake Total 700 Output Total Balance 700 Intake, Oral 700 Physical Exam General Appearance: Alert, Oriented X3, Cooperative Skin: No Rashes HEENT: Atraumatic Neck: Supple Lymphatic: Cervical nl Cardiovascular: Normal S1, Normal S2 Lungs: dec breath sounds b/l , AIR ENTERY IMPROVED B/L Abdomen: Soft, No Tenderness Extremities: No Edema, Normal Pulses Current Medications: Current Medications Sig/Jennifer Start time Last Medication Dose Route Stop Time Status Admin Albuterol Sulfate 2 PUF Q4 07/26 2200 AC 07/29 INH 0622 Albuterol Sulfate 3 ML Q4 HRS NEEDED PRN 07/23 0930 AC 07/26 INH 0752 Alprazolam 0.25 MG TID 07/26 1600 AC 07/28 PO 08/02 1559 2100 Aspirin 81 MG DAILY 07/23 1000 AC 07/28 PO 0923 Atorvastatin Calcium 20 MG 1700 07/23 1700 AC 07/28 PO 1545 Budesonide/ 2 PUF BID 07/23 1000 AC 07/28 Formoterol Fumarate INH 2101 Enoxaparin Sodium 40 MG DAILY 07/23 1000 AC 07/28 SC 0923 Estradiol 0.5 MG DAILY 07/23 1000 AC 07/28 PO 0923 Guaifenesin 600 MG Q12 07/23 1000 AC 07/28 PO 2100 Hydrochlorothiazide 12.5 MG DAILY 07/28 1000 AC 07/28 PO 1149 Isosorbide 60 MG DAILY 07/23 1000 AC 07/28 Mononitrate PO 0923 Losartan Potassium 50 MG DAILY 07/23 1000 AC 07/28 PO 0923 Methylprednisolone 40 MG Q12H 07/28 1800 AC 07/29 IV 0621 Methylprednisolone 40 MG Q12 07/28 1000 DC IV Methylprednisolone 40 MG Q6 07/25 1200 DC 07/28 IV 0626 Metoprolol Succinate 12.5 MG DAILY 07/25 1000 AC 07/28 PO 0924 Montelukast Sodium 10 MG QPM 07/23 2200 AC 07/28 PO 2100 Patient Medication 1 ED .STK-MED ONE 07/28 1421 DC Teaching ED 07/28 1422 Tiotropium [place] 1 PUF DAILY 07/23 1000 AC 07/28 INH 0856 Last 24 Hrs of Lab/Tano Results Last 24 Hrs of Labs/Mics: Laboratory Tests 07/28/16 0835: Anion Gap 8, Estimated GFR > 60, BUN/Creatinine Ratio 35.7 H, PT 10.9, INR 1.04 , D-Dimer < 200, CBC w Diff NO MAN DIFF REQ, RBC 5.16, MCV 83.2, MCH 27.0, RDW 14.2, MPV 8.4, Gran % 84.3 H, Lymphocytes % 12.4 L, Monocytes % 3.1, Eosinophils % 0, Basophils % 0.2, Absolute Granulocytes 3.8, Absolute Lymphocytes 0.6 L, Absolute Monocytes 0.1 L, Absolute Eosinophils 0, Absolute Basophils 0, PUBS MCHC 32.4 L Assessment/Plan Assessment: Patient is a 76-year-old female with PMH of COPD on 2-3 L of home oxygen as needed, hypertension, hyperlipidemia, coronary artery disease with history of [place] and angioplasty without stents, anxiety, vitamin B12 deficiency, spinal stenosis and varicose veins BIBA from home for worsening shortness of breath, chills, dry cough and chest congestion for last 3 days. Patient was very short of breath, on aerosol mask when she was brought into ER by EMS. She was also tachypneic with respiratory rate 28 breaths per minute. Oxygen saturation was 90-91% on room air. She was put on 2 L of oxygen by nasal cannula and oxygen saturation went up to 93-94%. Oxygen saturation went down to 88% during minimal exertion. She was given nebz treatment in ER. TMAX on admission 99. WBC count is normal. In ER she was given Solu-Medrol 125 mg IV 1, ceftriaxone 1 g 1 and doxycycline 100 mg 1. Problem list: -COPD exacerbation on 2-3.0 L O2 as needed at home -Community-acquired pneumonia, on antibiotics -Coronary artery disease, on isosorbide/aspirin -Myocardial infarction with angioplasty, no stents -Hypertension, on metoprolol/valsartan/hydrochlorothiazide -Hyperlipidemia, on atorvastatin -Anxiety, on Xanax -Spinal stenosis Acute hypoxic respiratory failure secondary to COPD and pneumonia Repeat CXR was not significant for pnemonia, ceftriaxone was d/cd on 07/26 Antibiotics narrowed to azithromycin. Solumedrol tapered to 40 mg q12, will swith to PO prednisone on 07/29/16 TRC nebs as needed. Respiratory therapist on board Will continue on mucine History of hypertension Her HCTZ was restarted on 07/28/16, blood pressure is stable, She takes 25 mg XL metoprolol at home, which is decreased to 12.5 daily, patient is tolerating that well. Patient is continued on 50 mg of losartan. will continue to monitor her closely. Weights And Measures Sealer on board as per patients request Will hold her BP meds for pressures < 100 systolic Hyperlipidemia and anxiety Will continue her on home meds. Heart healthy diet Subcutaneous Lovenox for DVT prophylaxis Full code Problem List: 1. COPD (chronic obstructive pulmonary disease) Pain Ratin Pain Location: none Pain Goal: Pain 4 or less Pain Plan: tylenol prn for pain Tomorrow's Labs & Rationales: none RUDDY BOWERS MD 07/29/16 1703: Attending MD Review Statement Attending Statement Attending MD Statement: examined this patient, discuss w/resident/PA/DRUG ABUSE TECHNICIAN, agreed w/resident/PA/DRUG ABUSE TECHNICIAN, discussed with family, reviewed EMR data (avail), discussed with nursing, amended to note Attending Assessment/Plan: The patient was seen and discussed with house staff. Patient c/o severe DYSON. Will ambulate more today and observe oxygen levels. Lung exam slowly improving.
--- NOTE | 2016-07-29 08:11 | PN- Pulmonary ---
Subjective HPI/Critical Care Issues: She is feeling improved shortness of breath is improving. Objective Current Medications: Current Medications Sig/Jennifer Start time Last Medication Dose Route Stop Time Status Admin Albuterol Sulfate 2 PUF Q4 07/26 2200 AC 07/29 INH 0622 Albuterol Sulfate 3 ML Q4 HRS NEEDED PRN 07/23 0930 AC 07/26 INH 0752 Alprazolam 0.25 MG TID 07/26 1600 AC 07/28 PO 08/02 1559 2100 Aspirin 81 MG DAILY 07/23 1000 AC 07/28 PO 0923 Atorvastatin Calcium 20 MG 1700 07/23 1700 AC 07/28 PO 1545 Budesonide/ 2 PUF BID 07/23 1000 AC 07/28 Formoterol Fumarate INH 2101 Enoxaparin Sodium 40 MG DAILY 07/23 1000 AC 07/28 SC 0923 Estradiol 0.5 MG DAILY 07/23 1000 AC 07/28 PO 0923 Guaifenesin 600 MG Q12 07/23 1000 AC 07/28 PO 2100 Hydrochlorothiazide 12.5 MG DAILY 07/28 1000 AC 07/28 PO 1149 Isosorbide 60 MG DAILY 07/23 1000 AC 07/28 Mononitrate PO 0923 Losartan Potassium 50 MG DAILY 07/23 1000 AC 07/28 PO 0923 Methylprednisolone 40 MG Q12H 07/28 1800 AC 07/29 IV 0621 Methylprednisolone 40 MG Q12 07/28 1000 DC IV Methylprednisolone 40 MG Q6 07/25 1200 DC 07/28 IV 0626 Metoprolol Succinate 12.5 MG DAILY 07/25 1000 AC 07/28 PO 0924 Montelukast Sodium 10 MG QPM 07/23 2200 AC 07/28 PO 2100 Patient Medication 1 ED .ST-MED ONE 07/28 1421 DC Teaching ED 07/28 1422 Tiotropium [place] 1 PUF DAILY 07/23 1000 AC 07/28 INH 0856 Vital Signs & I&O Last 24 Hrs of Vitals and I&O: Vital Signs Date Time Temp Pulse Resp B/P Pulse O2 O2 Flow FiO2 Ox Delivery Rate 07/29 0659 98.5 58 18 150/80 95 Nasal 2.0L Cannula 07/28 2255 98.1 57 19 136/70 97 Nasal Cannula 07/28 1915 98 Nasal 3.0L Cannula 07/28 1600 Nasal 3.0L Cannula 07/28 1440 98.2 68 19 120/70 100 07/28 0924 60 144/80 07/28 0923 60 144/80 07/28 0923 60 144/80 Intake & Output 07/29 1600 07/29 0800 07/29 0000 Intake Total 700 Output Total Balance 700 Intake, Oral 700 Oxygen saturation 2 L 95% exam for chest shows diminished breath sounds are no wheezes or crackles cardiac exam shows regular S1 and S2 without murmurs Impression/Plan Impression/Plan Impression/Plan: 76-year-old with severe COPD admitted with exacerbation. She is clinically improved. Recommendations: Oral prednisone oral antibiotics begin discharge planning patient is amenable to COPD clinic at the [facility].
[2016-07-29] MEDS ORDERED: PREDNISONE10 M2 PO (12:08)
--- NOTE | 2016-07-29 12:10 | Patient Discharge Instructions ---
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 Acute Coronary Syndrome Inclusion Criteria At DC or during hospital stay patient has or had the following: ACS DIAGNOSIS No Discharge Core Measures Meds if any: Prescribed or Continued at Discharge Meds if any: NOT Prescribed or Continued at Discharge Congestive Heart Failure Inclusion Criteria At DC or during hospital stay patient has or had the following: CHF DIAGNOSIS No Discharge Core Measures Meds if any: Prescribed or Continued at Discharge Meds if any: NOT Prescribed or Continued at Discharge Cerebrovascular accident Inclusion Criteria At DC or during hospital stay patient has or had the following: CVA/TIA Diagnosis No Discharge Core Measures Meds if any: Prescribed or Continued at Discharge Meds if any: NOT Prescribed or Continued at Discharge Venous thromboembolism Inclusion Criteria VTE Diagnosis No VTE Type NONE VTE Confirmed by (Test) NONE Discharge Core Measures - Per Current guidelines, there needs to be overlap - treatment for the first 5 days of Warfarin therapy. - If discharged on Warfarin prior to 5 days of - overlap therapy, the patient will need to be - assessed for post discharge needs including - *Post discharge parental anticoagulation - *Warfarin and/or parental anticoagulation education - *Follow up date to check INR post discharge At least 5 days overlap therapy as Inpatient No Meds if any: Prescribed or Continued at Discharge Note: Overlap Therapy is Warfarin and Anticoagulant Meds if any: NOT Prescribed or Continued at Discharge
--- NOTE | 2016-07-29 12:10 | Discharge Summary ---
Visit Information Visit Dates Admission Date: 07/23/16 Discharge Date: 07/30/16 Hospital Course Course Attending Physician: RUDDY BOWERS MD Primary Care Physician: VIC RODRÍGUEZ MD Consulting Request: Consulting Specialty: Pulmonary Disease Consulting Physician: Dr. Weiss Reason for Consult: COPD exacerbation Hospital Course: Patient is a 76-year-old female with PMH of COPD on 2-3 L of home oxygen as needed, hypertension, hyperlipidemia, coronary artery disease with history of [place] and angioplasty without stents, anxiety, vitamin B12 deficiency, spinal stenosis and varicose veins BIBA from home for worsening shortness of breath, chills, dry cough and chest congestion for last 3 days. Patient was very short of breath, on aerosol mask when she was brought into ER by EMS. She was also tachypneic with respiratory rate 28 breaths per minute. Oxygen saturation was 90-91% on room air. She was put on 2 L of oxygen by nasal cannula and oxygen saturation went up to 93-94%. Oxygen saturation went down to 88% during minimal exertion. She was given nebz treatment in ER. TMAX on admission 99. WBC count is normal. In ER she was given Solu-Medrol 125 mg IV 1, ceftriaxone 1 g 1 and doxycycline 100 mg 1. Problem list: -COPD exacerbation on 2-3.0 L O2 as needed at home -Community-acquired pneumonia, on antibiotics -Coronary artery disease, on isosorbide/aspirin -Myocardial infarction with angioplasty, no stents -Hypertension, on metoprolol/valsartan/hydrochlorothiazide -Hyperlipidemia, on atorvastatin -Anxiety, on Xanax -Spinal stenosis Acute on chronic respiratory failure secondary to COPD exacerbation Patient was admitted for SOB, her CXR portable and repeat CXR PA/lateral was not significant for pnemonia, ceftriaxone was d/cd on 07/26 however azithromycin continued for a total of 5 days. Patient was initially started on IV steroids, she was very tight on chest examination, upon d/c she will be switched to PO steroids with taper. History of hypertension Her metoprol was decreased to 12.5 and HCTZ and losratan continued. Plan to d/c her on same does of metoprolol. patient should follow up with PCP upon discharge. Hyperlipidemia and anxiety Will continue her on home meds. Allergies: Coded Allergies: Penicillins (Severe, DIFF BREATHING, SWELLING 07/23/16) bupropion (From WELLBUTRIN) (Intermediate, WELTS 09/16/15) morphine (Intermediate, ANXIOUS AND SOB 09/16/15) Disposition Summary Disposition Principal Diagnosis: Acute on chronic respiratory failure secondary to copd exacerbation Additional Diagnosis: HTN HLD Anxiety Discharge Disposition: home or self care Discharge Instructions General Discharge Information Code Status: Full Code Patient's Diet: heart healthy Patient's Activity: as tolerated Follow-Up Instructions/Appts: follow up with pcp upon discharge Medications at Discharge Discharge Medications: Continue taking these medications: Cyanocobalamin (Vitamin B-12) (Cyanocobalamin Injection) 1,000 MCG/1 ML VIAL 1 Milliliters INTRAMUSC ONCE A MONTH Comments: Last Taken:NOT GIVEN IN HOSPITAL Time: Ipratropium/Albuterol Sulfate (Iprat-Albut 0.5-3(2.5) MG/3 Ml) 3 ML AMPUL.NEB 3 Milliliters Inhale through mouth TWICE DAILY as needed for shortness of breath Comments: Last Taken:07/26/16 Time:0800 Aspirin (Children's Aspirin) 81 MG TAB.CHEW 1 Tablet ORAL DAILY Comments: Last Taken:07/30/16 Time: 0900 Budesonide/Formoterol Fumarate (Symbicort 160-4.5 Mcg Inhaler) 10.2 GM HFA.AER.AD 2 Puff Inhale through mouth TWICE DAILY Comments: Last Taken:07/30/16 Time:0900 Estradiol (Estrace) 0.5 MG TABLET 1 Tablet ORAL DAILY Comments: Last Taken:07/30/16 Time:0900 Valsartan/Hydrochlorothiazide (Diovan Hct 160-12.5 MG Tab) 1 EACH TABLET 1 Tablet ORAL DAILY Comments: Last Taken:07/30/16 Time:0900 Isosorbide Mononitrate (Isosorbide Mononitrate ER) 60 MG TAB.ER.24H 1 Tablet ORAL DAILY Comments: Last Taken:07/30/16 Time:0900 Montelukast Sodium (Singulair) 10 MG TABLET 1 Tablet ORAL DAILY Comments: Last Taken:07/29/16 Time: 9 PM Rosuvastatin Calcium (Crestor) 20 MG TABLET 1 Tablet ORAL DAILY Comments: Last Taken:07/29/16 Time:4 PM Tiotropium [place] (Spiriva) 18 MCG CAP.W.DEV 1 Capsule Inhale through mouth DAILY Comments: Last Taken:07/30/16 Time:0900 Alprazolam (Alprazolam) 0.5 MG TABLET 1 Tablet ORAL DAILY NEEDED as needed for ANXIETY Comments: Last Taken:07/30/16 Time: 4 PM Metoprolol Succinate (Metoprolol Succinate) 25 MG TAB.ER.24H 0.5 Tablet ORAL DAILY Days = 90 Comments: Last Taken:07/30/16 Time:0900 This prescription has been renewed Start taking the following new medications: Prednisone (Prednisone) 10 MG TABLET 1 Tablet ORAL DAILY Qty = 5 No Refills Instructions: Take 4 tabs from 07/30/16-08/01/16 take 3 tabs from 08/02/16- 08/04/16 take 2 tabs from 08/05/16 - 08/07/16 take 1 tab from 08/08/16- 08/10/16 then stop and follow up with your freight shipping agent. Comments: Last Taken:07/30/16 Time:1050 The following medications have been changed: Old: Albuterol Sulfate (Proair Hfa) 8.5 GM HFA.AER.AD 2 Puff Inhale through mouth EVERY 4 HOURS NEEDED as needed for shortness of breath Days = 30 New: Albuterol Sulfate (Proair Hfa) 90 MCG HFA.AER.AD 2 Puff Inhale through mouth EVERY 4-6 HOURS NEEDED as needed for shortness of breath Days = 30 Comments: Last Taken:07/30/16 Time:3 PM Old: Albuterol Sulfate (Albuterol Sulfate) 2.5 MG/3 ML VIAL.NEB 1 Vial Inhale Solution DAILY NEEDED as needed for shortness of breath Days = 30 New: Albuterol Sulfate (Albuterol Sulfate) 2.5 MG/3 ML (0.083 %) VIAL.NEB 1 Vial Inhale Solution EVERY 4 HOURS NEEDED as needed for shortness of breath Days = 30 Comments: Last Taken:07/26/16 Time:0800 Copies To: MARCOS JO,VIC; LAURIE JO,JUJU Antonio; RUDDY BOWERS MD Attending Review Statement Documenting Attending: RUDDY BOWERS MD Other Findings: The patient was seen and agree with plan of care upon discharge.
[2016-07-29 14:34] VITALS: BP 120/66
[2016-07-29] MEDS ORDERED: METOPROLOL SUCC25 M1 PO (15:28)
[2016-07-29 21:40] VITALS: BP 140/80
[2016-07-30 06:43] VITALS: BP 130/66
--- NOTE | 2016-07-30 07:30 | PN- Pulmonary ---
Subjective HPI/Critical Care Issues: She slowly improving but continues to have dyspnea on exertion Objective Current Medications: Current Medications Sig/Jennifer Start time Last Medication Dose Route Stop Time Status Admin Albuterol Sulfate 2 PUF Q4 07/26 2200 AC 07/30 INH 0651 Albuterol Sulfate 3 ML Q4 HRS NEEDED PRN 07/23 0930 AC 07/26 INH 0752 Alprazolam 0.25 MG TID 07/26 1600 AC 07/29 PO 08/02 1559 2101 Aspirin 81 MG DAILY 07/23 1000 AC 07/29 PO 0953 Atorvastatin Calcium 20 MG 1700 07/23 1700 AC 07/29 PO 1552 Budesonide/ 2 PUF BID 07/23 1000 AC 07/29 Formoterol Fumarate INH 2102 Enoxaparin Sodium 40 MG DAILY 07/23 1000 AC 07/29 SC 0953 Estradiol 0.5 MG DAILY 07/23 1000 AC 07/29 PO 0954 Guaifenesin 600 MG Q12 07/23 1000 AC 07/29 PO 0954 Hydrochlorothiazide 12.5 MG DAILY 07/28 1000 AC 07/29 PO 0954 Isosorbide 60 MG DAILY 07/23 1000 AC 07/29 Mononitrate PO 0953 Losartan Potassium 50 MG DAILY 07/23 1000 AC 07/29 PO 0954 Methylprednisolone 40 MG Q12H 07/28 1800 DC 07/29 IV 0621 Metoprolol Succinate 12.5 MG DAILY 07/25 1000 AC 07/29 PO 0954 Montelukast Sodium 10 MG QPM 07/23 2200 AC 07/29 PO 2101 Patient Medication 1 ED .ST-MED ONE 07/29 1416 PR Teaching ED 07/29 1417 Prednisone 40 MG ONCE ONE 07/29 1030 DC PO 07/29 1031 Tiotropium [place] 1 PUF DAILY 07/23 1000 AC 07/29 INH 0952 Vital Signs & I&O Last 24 Hrs of Vitals and I&O: Vital Signs Date Time Temp Pulse Resp B/P Pulse O2 O2 Flow FiO2 Ox Delivery Rate 07/30 0643 98.4 60 20 130/66 97 Nasal 2.0L Cannula 07/290 98.2 91 20 140/80 96 07/29 1600 Nasal 2.0L Cannula 07/29 1445 98 Nasal 2.0L Cannula 07/29 1434 98.1 66 18 120/66 92 07/29 0954 68 134/74 07/29 0954 68 134/74 07/29 0953 68 134/74 07/29 0800 95 Nasal 2.0L Cannula Intake & Output 07/30 0800 07/30 0000 07/29 1600 Intake Total 700 600 Output Total Balance 700 600 Intake, Oral 700 600 Since saturation 2 L 97% exam for chest shows diminished breath sounds are no wheezes cardiac exam shows normal S1 and S2 without murmurs Impression/Plan Impression/Plan Impression/Plan: 76-year-old with severe COPD admitted with exacerbation. She is clinically improved. Recommendations: Oral prednisone oral antibiotics begin discharge planning patient is amenable to COPD clinic at the [facility]. Patient would likely need an extended period of time to fully recover.
--- NOTE | 2016-07-30 08:15 | PN- Housestaff ---
See Addendum Subjective Follow-up For: COPD exacerbation Complaints: no complaints Subjective: Pt sitting on the bed comfortably, on 2L oxygen (home oxygen 2L) She is breathing okay on rest, but she is concerned about ambulatory oxygen saturation. Review of Systems Constitutional: Denies: chills, fever, weakness. EENTM: Denies: visual changes, nasal congestion, throat pain. Cardiovascular: Denies: chest pain, palpitations, peripheral edema, syncope. Respiratory: Denies: cough, orthopnea, short of breath, sputum production, wheezing. Gastrointestinal: Denies: abdominal pain, constipation, nausea, vomiting. Genitourinary: Reports: no symptoms. Musculoskeletal: Reports: no symptoms. Skin: Reports: no symptoms. Objective Last 24 Hrs of Vital Signs/I&O Vital Signs Date Time Temp Pulse Resp B/P Pulse O2 O2 Flow FiO2 Ox Delivery Rate 07/30 0929 95 Nasal 2.0L Cannula 07/30 0905 62 134/70 07/30 0905 62 134/70 07/30 0905 62 134/70 07/30 0800 97 Nasal 2.0L Cannula 07/30 0643 98.4 60 20 130/66 97 Nasal 2.0L Cannula 07/29 2140 98.2 91 20 140/80 96 07/29 1600 Nasal 2.0L Cannula 07/29 1445 98 Nasal 2.0L Cannula 07/29 1434 98.1 66 18 120/66 92 Intake & Output 07/30 1600 07/30 0800 07/30 0000 Intake Total 700 Output Total Balance 700 Intake, Oral 700 Physical Exam General Appearance: Alert, Oriented X3, Cooperative, No Acute Distress Skin: No Rashes, No Breakdown, No Significant Lesion HEENT: Atraumatic, PERRLA, EOMI, Mucous Membr. moist/pink Neck: Supple, No JVD, No thryomegaly, No LAD Lymphatic: Cervical nl Cardiovascular: Regular Rate, Normal S1, Normal S2, No Murmurs Lungs: Clear to Auscultation, decreased air movement Abdomen: Normal Bowel Sounds, Soft, No Tenderness Neurological: Normal Speech, Strength at 5/5 X4 Ext, Normal Tone, Sensation Intact Extremities: No Cyanosis, No Edema, Normal Pulses Vascular: Normal Pulses, Pulses Symmetrical Current Medications: Current Medications Sig/Jennifer Start time Last Medication Dose Route Stop Time Status Admin Albuterol Sulfate 2 PUF Q4 07/26 2200 AC 07/30 INH 0906 Albuterol Sulfate 3 ML Q4 HRS NEEDED PRN 07/23 0930 AC 07/26 INH 0752 Alprazolam 0.25 MG TID 07/26 1600 AC 07/30 PO 08/02 1559 0904 Aspirin 81 MG DAILY 07/23 1000 AC 07/30 PO 0904 Atorvastatin Calcium 20 MG 1700 07/23 1700 AC 07/29 PO 1552 Budesonide/ 2 PUF BID 07/23 1000 AC 07/30 Formoterol Fumarate INH 0906 Enoxaparin Sodium 40 MG DAILY 07/23 1000 AC 07/30 SC 0905 Estradiol 0.5 MG DAILY 07/23 1000 AC 07/30 PO 0905 Guaifenesin 600 MG Q12 07/23 1000 AC 07/30 PO 0905 Hydrochlorothiazide 12.5 MG DAILY 07/28 1000 AC 07/30 PO 0905 Isosorbide 60 MG DAILY 07/23 1000 AC 07/30 Mononitrate PO 0905 Losartan Potassium 50 MG DAILY 07/23 1000 AC 07/30 PO 0905 Methylprednisolone 40 MG Q12H 07/28 1800 DC 07/29 IV 0621 Metoprolol Succinate 12.5 MG DAILY 07/25 1000 AC 07/30 PO 0905 Montelukast Sodium 10 MG QPM 07/23 2200 AC 07/29 PO 2101 Patient Medication 1 ED .K-MED ONE 07/29 1416 TN Teaching ED 07/29 1417 Prednisone 40 MG DAILY 07/30 1000 AC PO Prednisone 40 MG ONCE ONE 07/29 1030 DC PO 07/29 1031 Tiotropium [place] 1 PUF DAILY 07/23 1000 AC 07/30 INH 0904 Assessment/Plan Assessment: Patient is a 76-year-old female with PMH of COPD on 2-3 L of home oxygen as needed, hypertension, hyperlipidemia, coronary artery disease with history of [place] and angioplasty without stents, anxiety, vitamin B12 deficiency, spinal stenosis and varicose veins BIBA from home for worsening shortness of breath, chills, dry cough and chest congestion for last 3 days. Patient was very short of breath, on aerosol mask when she was brought into ER by EMS. She was also tachypneic with respiratory rate 28 breaths per minute. Oxygen saturation was 90-91% on room air. She was put on 2 L of oxygen by nasal cannula and oxygen saturation went up to 93-94%. Oxygen saturation went down to 88% during minimal exertion. She was given nebz treatment in ER. TMAX on admission 99. WBC count is normal. In ER she was given Solu-Medrol 125 mg IV 1, ceftriaxone 1 g 1 and doxycycline 100 mg 1. Problem list: -COPD exacerbation on 2-3.0 L O2 as needed at home -Community-acquired pneumonia, on antibiotics -Coronary artery disease, on isosorbide/aspirin -Myocardial infarction with angioplasty, no stents -Hypertension, on metoprolol/valsartan/hydrochlorothiazide -Hyperlipidemia, on atorvastatin -Anxiety, on Xanax -Spinal stenosis Acute hypoxic respiratory failure secondary to COPD exacerbation Repeat CXR was not significant for pnemonia, and she finished the course of po azithromycin for COPD exacerbation. IV Solumedrol was tapered to PO prednisone on 07/29/16. TRC, nebs were continued. Patient is on 2L oxygen at baseline. Will check ambulatory saturation, and D/C pt to home today. Hypertension Stable BP with HCTZ, metoprolol and losartan. She takes 25 mg XL metoprolol at home, which was decreased to 12.5 daily. Patient is continued on home dose of HTCA, losartan. Hyperlipidemia and anxiety continue her on home meds. Heart healthy diet Subcutaneous Lovenox for DVT prophylaxis Full code Problem List: 1. COPD exacerbation Pain Ratin Pain Location: NA Pain Goal: Pain 4 or less Pain Plan: tyrenol prn for pain 1-3 Tomorrow's Labs & Rationales: D/C today DVT/Prophylaxis: pharmacological Discharge Plan Discharge Disposition: home Stable for Discharge? Yes Anticipated Discharge (Day): today If Discharged Today/In 24 Hrs: enter antc discharge ord, DC summary done, CMR done Discharge Disposition: home Stable for Discharge? Yes Anticipated Discharge (Day): today If Discharged Today/In 24 Hrs: enter antc discharge ord, DC summary done, CMR done
[2016-07-30 14:37] VITALS: BP 130/68
[2016-07-30] MEDS ORDERED: ALBUTEROL2.5 MG/3 M INH/SOL (15:02)
[2016-07-30] MEDS ORDERED: PROAIR HFA8.5 GM INH (15:02)
== END 2016-07-30 17:03 | DRG 190 ==
LOC: ENRESERVDT → ENRESERVTM → ERH 06:05 → 2NA 08:10 → ERHI 08:10 → ENPENDDIS 08:10 → ERHI 09:43 → 2NA 15:31
PROVIDERS: Emergency Medicine; Internal Medicine; Internal Medicine Interventional Cardiology; ADMIT Internal Medicine
DX: J44.1 Chronic obstructive pulmonary disease with (acute) exacerbation (principal); J96.20 Acute and chronic respiratory failure, unspecified whether with hypoxia or hypercapnia; J18.9 Pneumonia, unspecified organism; E78.5 Hyperlipidemia, unspecified; F41.9 Anxiety disorder, unspecified; E53.9 Vitamin B deficiency, unspecified; I25.2 Old myocardial infarction; Z99.81 Dependence on supplemental oxygen; I25.10 Atherosclerotic heart disease of native coronary artery without angina pectoris; I11.9 Hypertensive heart disease without heart failure; Z98.61 Coronary angioplasty status; E53.8 Deficiency of other specified B group vitamins; K21.9 Gastro-esophageal reflux disease without esophagitis; Z87.891 Personal history of nicotine dependence
CPT/HCPCS: 2NAP; 2NASP; 82436; 87040; 87070; 87449; 87450; 87804; 87804-59; 93005; 93010; 96374; 97116-GO; 97161-GP; J0456; J0696; J1650; J2920; J2930; J3490; J7060